=== PATIENT | female | born 1955 | race Caucasian/White ===

== ENCOUNTER 2023-09-19 12:32 | Emergency (ER) | payer MEDICARE, OTHER, SELFPAY ==
[2023-09-19 12:33] VITALS: BP 139/100; PULSE 97; RESP 18; TEMP 37.2; O2SAT 98; BMI 19.0
--- NOTE | 2023-09-19 12:53 | CT_ITS ---
STUDY: CT ABDOMEN AND PELVIS WITH CONTRAST REASON FOR EXAM: Female, 68 years old. Abdominal pain. History of metastatic endometrial carcinoma. RADIATION DOSAGE (If Supplied By Facility): CTDIvol = ( 9.53 ) mGy, DLP = ( 282.52 ) mGycm TECHNIQUE: Transaxial images were obtained from the dome of the diaphragm to the symphysis pubis without oral contrast. IV 100mL Isovue-300 was administered. Sagittal and coronal images were reconstructed. Individualized dose optimization techniques were used for this CT. COMPARISON: None. FINDINGS: The visualized lung bases are unremarkable. The visualized portions of the heart are within normal limits. There is decreased attenuation of the liver consistent with steatosis. Normal gallbladder and extrahepatic biliary system. Borderline splenomegaly. Normal pancreas. Normal bilateral adrenal glands. Normal right kidney. Normal left kidney. Incidental note is made of a left retroaortic renal vein. Normal visualized stomach. Normal small intestine. There are multiple colonic diverticula consistent with diverticulosis. The appendix is visualized and appears normal. There is diffuse atherosclerotic calcification of the abdominal aorta, without a demonstrated aneurysm. Normal inferior vena cava. Normal retroperitoneum. Normal urinary bladder. There is absence of the uterus consistent with a prior hysterectomy. Normal abdominal wall. Status post right total hip replacement causing beam hardening artifact in the pelvis thus limiting the evaluation. CT/Abdomen/Pelvis W IV Cont ONLY IMPRESSION: Fatty infiltration of the liver. Scattered sigmoid diverticula. Borderline splenomegaly. Electronically Signed: Luke Mason MD at 14:13 EST ,
--- NOTE | 2023-09-19 12:56 | EX.ED.DYSGE1 ---
HPI <OTTO Lizama - Last Filed: 09/19/23 15:23> History of Present Illness Chief Complaint: Abd Pain Narrative Narrative: Patient is a 68-year-old female who is from [place] who is currently being treated for endometrial cancer and had some metastasis to the lymph nodes as well as the abdomen. Patient states she did have abdominal surgery 2 years ago and they believe they got all the cancer. She is still on immunotherapy. She received therapy prior to coming here she came here on September 13 and will be leaving here September 23. Patient states that since she has been here, she has had nausea, vomiting, lower abdominal pain. She states she just feels weak and is here for evaluation. PFSH <OTTO Lizama - Last Filed: 09/19/23 15:23> [facility] Medical History (Updated 09/19/23 @ 15:23 by OTTO Lizama) Endometrial cancer Ingrown nail Stroke TIA (transient ischemic attack) Home Medications ondansetron 4 mg disintegrating tablet 4 mg PO Q8H PRN PRN Nausea #10 tabs 09/19/23 [Rx Last Taken Unknown] Allergy/AdvReac Type Severity Reaction Status Date / Time No Known Allergies Allergy Verified 09/19/23 12:33 Family History (Updated 09/19/23 @ 13:10 by Mirella Rincon) Other Complication of implanted vaginal mesh H/O: hysterectomy History of hysterectomy for cancer Hx of tonsillectomy Social History Smoking Status: Never smoker ROS <OTTO Lizama - Last Filed: 09/19/23 15:23> ROS ED ROS Narrative Constitutional: Negative for fever, chills, weight loss. Positive for weakness Eyes: Negative for vision loss, vision change, double vision ENT: Negative for any sore throat, ear pain, congestion Cardiovascular: Negative for any chest pain, tightness, palpitations Respiratory: Negative for any cough, sputum production, hemoptysis, dyspnea, dyspnea on exertion, orthopnea Gastrointestinal: Negative for any constipation, blood in stool, blood in vomit. Positive for abdominal pain, nausea, vomiting, diarrhea : Negative for any urinary frequency, dysuria, retention, blood in urine Muscle skeletal: Negative for any myalgias, arthralgias, neck pain, back pain Neurological: Negative for any headache, syncope, numbness or tingling, dizziness Skin: Negative for any rashes, lumps, itching, abrasions, lacerations Psychiatric: Negative for any depression, anxiety, stress, suicidal ideation, homicidal ideation Hematologic: Negative for any easy bruising, excessive bruising, easy bleeding Allergies: Negative for any eczema, hives, rash EXAM <OTTO Lizama - Last Filed: 09/19/23 15:23> Physical Exam Narrative Exam Narrative: Vital signs reviewed. HEET: Head normocephalic atraumatic, TMs clear bilaterally. Posterior pharynx is clear, moist mucous membranes. Nares clear bilaterally. Neck: Supple with no lymphadenopathy or tenderness. No signs of meningismus. Cardiac: Regular rate and rhythm no murmurs gallops or rubs, equal peripheral pulses bilaterally. Respiratory: Lungs clear to auscultation bilaterally. No chest tenderness. Abdomen: Soft, nontender, nondistended. No abdominal bruit or pulsatile masses. No hepatosplenomegaly. Patient does point to the left lower quadrant saying that she has a cramping, painful sensation however there is no peritoneal signs. Minimal pain on palpation. Extremities: No peripheral edema, no signs of gross trauma or deformity. Active full range of motion of all extremities. Neuro: Cranial nerves II through XII intact, no focal neurological deficits. Skin: Clean dry and intact with no rash, purpura, petechiae, vesicles or pustules. Backs/flank: No CVA tenderness, no midline spinal tenderness, no deformity. Psych: Normal mood and affect. No SI, HI or acute psychosis. Const Vital Signs: 09/19/23 12:33 Temperature 99 F Temperature Source Temporal Pulse Rate 97 Respiratory Rate 18 Blood Pressure 139/100 H Blood Pressure Mean 113 Pulse Ox 98 Oxygen Delivery Method Room Air <Godfrey Saeed MD - Last Filed: 09/22/23 07:06> Physical Exam Const Vital Signs: 09/19/23 12:33 Temperature 99 F Temperature Source Temporal Pulse Rate 97 Respiratory Rate 18 Blood Pressure 139/100 H Blood Pressure Mean 113 Pulse Ox 98 Oxygen Delivery Method Room Air MDM <OTTO Lizama - Last Filed: 09/19/23 15:23> [facility] Lab Data Labs: Laboratory Results - last 24 hr 09/19/23 09/19/23 13:00 14:35 WBC 4.8 RBC 4.43 Hgb 13.4 Hct 40.2 MCV 90.7 MCH 30.2 MCHC 33.3 RDW Std Deviation 44.3 H RDW Coeff of Maria M 13.3 Plt Count 141 L MPV 10.7 Immature Gran % (Auto) 0.200 Neut % (Auto) 53.7 Lymph % (Auto) 19.8 Owen % (Auto) 13.6 H Eos % (Auto) 11.9 H Baso % (Auto) 0.8 Absolute Neuts (auto) 2.6 Absolute Lymphs (auto) 0.95 Nucleated RBC % 0 Sodium 140 Potassium 3.6 Chloride 106 Carbon Dioxide 26.0 Anion Gap 8 BUN 18 Creatinine 0.97 Estim Creat Clear Calc 44.12 Est GFR (MDRD) Af Amer 74 Est GFR (MDRD) Non-Af 61 BUN/Creatinine Ratio 18.6 Glucose 80 Calcium 9.6 Total Bilirubin 0.70 AST 27 ALT 18 Alkaline Phosphatase 51 Total Protein 6.3 L Albumin 3.2 Globulin 3.1 Albumin/Globulin Ratio 1.0 Lipase 20 Urine Color Yellow Urine Clarity Clear Urine pH 5.0 Ur Specific Revere 1.015 Urine Protein 15 H Urine Glucose (UA) Normal Urine Ketones 150 A* Urine Occult Blood Negative Urine Nitrite Negative Urine Bilirubin Negative Urine Urobilinogen Normal Ur Leukocyte Esterase 25 H Urine RBC 0 SEEN Urine WBC 0-5 SEEN Ur Squamous Epith Cells 0-5 SEEN Urine Bacteria 0 SEEN Urine Mucus 0 SEEN Radiography Diagnostic Testing: Clinical Impression(s) from Imaging Studies Abdomen/Pelvis CT 09/19/23 12:53 IMPRESSION: Fatty infiltration of the liver. Scattered sigmoid diverticula. Borderline splenomegaly. Electronically Signed: Luke Mason MD at 14:13 EST , Treatment and Re-Evaluation :: Patient appears generally well, patient appears nontoxic, vital signs are stable. Presenting to the emergency department for lower abdominal pain, nausea, vomiting, diarrhea. She is currently being treated for endometrial cancer that spread to the lymph nodes. Differential diagnosis includes bowel obstruction, viral gastrointestinal illness, gastritis, mass, food poisoning. Patient will receive basic laboratory values concerning for a leukocytosis, leukopenia, BMP to assess electrolytes to make sure there is no imbalance, kidney function, as well as CT scan of the abdomen pelvis. All radiologic examinations were read, reviewed by the emergency department attending. From these reads, a plan of care will be put in place. Patient CBC was unremarkable, chemistries were unremarkable, lipase was negative. Patient's urinalysis was negative for any infection. Patient CT scan of the abdomen pelvis showed fatty infiltration of liver, scattered sigmoid diverticula, borderline spinal megaly a. At this time, patient is able to pass a p.o. challenge. She looks generally well. She is instructed return for any worsening symptoms. Likely, patient's been traveling, has been more exhausted, and she has not been eating and drinking normally. At this time, she will be given a prescription for Zofran, she will rest over the next couple days, instructed return for any worsening symptoms. <Godfrey Saeed MD - Last Filed: 09/22/23 07:06> [facility] MDM Narrative Medical decision making narrative: Dr. Saeed: I have personally performed a face to face assessment of the patient and have reviewed the MARIVEL Note. I performed a substantive portion of the visit including all aspects of the following. My atkins findings include: History is abdominal pain, lower, nausea, vomiting, diarrhea, history of endometrial cancer. Exam is afebrile. Vital signs noted. Regular rate and rhythm. Lungs clear to auscultation bilaterally. Abdomen soft with minimal tenderness to palpation bilateral lower quadrants. No rebound or guarding. Medical Decision Making: Labs. Check CT. Check UA. Look for signs of dehydration or source of lower abdominal pain including colitis versus diverticulitis versus obstruction. Discharge. Other additions or changes: [None] History & Record Review Discussion w/independent historian: Patient Lab Data Attestation: I reviewed the patient's lab results. Labs: Laboratory Results - last 24 hr 09/19/23 09/19/23 13:00 14:35 WBC 4.8 RBC 4.43 Hgb 13.4 Hct 40.2 MCV 90.7 MCH 30.2 MCHC 33.3 RDW Std Deviation 44.3 H RDW Coeff of Maria M 13.3 Plt Count 141 L MPV 10.7 Immature Gran % (Auto) 0.200 Neut % (Auto) 53.7 Lymph % (Auto) 19.8 Owen % (Auto) 13.6 H Eos % (Auto) 11.9 H Baso % (Auto) 0.8 Absolute Neuts (auto) 2.6 Absolute Lymphs (auto) 0.95 Nucleated RBC % 0 Sodium 140 Potassium 3.6 Chloride 106 Carbon Dioxide 26.0 Anion Gap 8 BUN 18 Creatinine 0.97 Estim Creat Clear Calc 44.12 Est GFR (MDRD) Af Amer 74 Est GFR (MDRD) Non-Af 61 BUN/Creatinine Ratio 18.6 Glucose 80 Calcium 9.6 Total Bilirubin 0.70 AST 27 ALT 18 Alkaline Phosphatase 51 Total Protein 6.3 L Albumin 3.2 Globulin 3.1 Albumin/Globulin Ratio 1.0 Lipase 20 Urine Color Yellow Urine Clarity Clear Urine pH 5.0 Ur Specific Revere 1.015 Urine Protein 15 H Urine Glucose (UA) Normal Urine Ketones 150 A* Urine Occult Blood Negative Urine Nitrite Negative Urine Bilirubin Negative Urine Urobilinogen Normal Ur Leukocyte Esterase 25 H Urine RBC 0 SEEN Urine WBC 0-5 SEEN Ur Squamous Epith Cells 0-5 SEEN Urine Bacteria 0 SEEN Urine Mucus 0 SEEN Radiography Diagnostic Testing: Clinical Impression(s) from Imaging Studies Abdomen/Pelvis CT 09/19/23 12:53 IMPRESSION: Fatty infiltration of the liver. Scattered sigmoid diverticula. Borderline splenomegaly. Electronically Signed: Luke Mason MD at 14:13 EST , Discharge Plan Triage Chief Complaint: Abd Pain ED Midlevel Provider: Mario Caballero ED Provider: Godfrey Saeed Dx/Rx/DC Orders Clinical Impression: Acute dehydration, Nausea & vomiting Instructions: Cancer Tx Control Nausea Vomiting, Dehydration Prescriptions: New ondansetron 4 mg tablet,disintegrating 4 mg PO Q8H PRN PRN (Reason: Nausea) Qty: 10 0RF Primary Care Provider: Care Physician,No Primary Referrals: Care Physician,No Primary [Primary Care Provider] - Activity Restrictions/Additional Instructions: Please follow-up with your oncologist Disposition Disposition: Home, Self Care Discharge Date/Time: 09/19/23 15:33
[2023-09-19] MEDS: 0.9% Normal Saline (1000mL) 1,000 ML 1000 ML IV (13:02)
[2023-09-19] MEDS: Ondansetron 4 MG/2 ML Vial IV (13:03)
[2023-09-19] MEDS: Morphine 4 MG/ML Syringe IV (13:04)
[2023-09-19 13:05] LABS: Absolute Lymphocyte Count 0.95 X10^3/uL (0.83-4.51); Absolute Neutrophil Count 2.6 X10^3/uL (2.0-7.7); Basophil# 0.04 X10^3/uL; Basophil% 0.8 % (0-1); Eosinophil# 0.57 X10^3/uL; Eosinophils% 11.9 % (0-5); Hematocrit 40.2 % (37-47); Hemoglobin 13.4 g/dL (12.0-15.0); Lymphocyte # 0.95 X10^3/ul (0.83-4.51); Lymphocyte % 19.8 % (19-41); Mean Corp Hgb Conc 33.3 g/dL (32-36); Mean Corpuscular Hgb 30.2 pg (27.0-32.0); Mean Corpuscular Volume 90.7 fL (81-99); Mean Platelet Vol. 10.7 fl (6.2-12.0); Monocyte# 0.65 X10^3/uL; Monocyte% 13.6 % (0-10); NRBC Flagged by Analyzer 0 % (0-5); Neutrophil # 2.57 X10^3/uL (2.7-7.7); Neutrophil % 53.7 % (47-70); Platelet Count 141 K/mm3 (150-450); RBC Distribution Width CV 13.3 % (11.6-14.6); RBC Distribution Width SD 44.3 fl (35.1-43.9); Red Blood Count 4.43 M/mm3 (4.2-5.4); White Blood Count 4.8 K/mm3 (4.4-11.0)
[2023-09-19 13:26] LABS: AST(SGOT) 27 U/L (15-37); Alanine Aminotransfer ALT/SGPT 18 U/L (13-56); Albumin, Serum 3.2 g/dL (3.2-5.0); Alkaline Phosphatase 51 U/L (45-117); Anion Gap 8 (5-15); BUN 18 mg/dL (7-18); BUN/Creat Ratio 18.6 RATIO (10-20); Calcium,Total 9.6 mg/dL (8.5-10.1); Chloride 106 mmol/L (98-107); Creatinine, Serum 0.97 mg/dL (0.55-1.02); EST Glomerular Filtration Rate 61 mL/min (>60); Est Glom Filt Rate - Afr Amer 74 mL/min (>60); Estimated Creatinine Clearance 44.12 ml/min; Globulin 3.1 g/dL (2.2-4.2); Glucose 80 mg/dL (74-106); Lipase 20 U/L (13-75); Potassium 3.6 mmol/L (3.5-5.1); Protein, Total 6.3 g/dL (6.4-8.2); Sodium Level 140 mmol/L (136-145)
[2023-09-19 14:43] LABS: Bacteria 0 SEEN /hpf (None Seen); Mucous, Urine 0 SEEN /hpf (<or=2+); Red Blood Cells-Urine 0 SEEN /hpf (0-5)
[2023-09-19 14:47] LABS: Color, Urine Yellow (Yellow); Glucose, Dipstick Normal (Normal); Leukocyte Esterase-Dipstick 25 /ul (Negative); Nitrite-Dipstick Negative (Negative); Occult Blood-Urine Negative /ul (Negative); Protein-Dipstick 15 mg/dl (Negative); Specific Gravity, Urine 1.015 (1.002-1.030); Urine Bilirubin Dipstick Negative (Negative); Urine Clarity Clear (Clear); Urine Urobilinogen Normal (Normal)
[2023-09-19 14:59] LABS: Ketone-Dipstick 150 mg/dl (Negative)
[2023-09-19 15:01] LABS: Squamous Epithelial Cells - UA 0-5 SEEN /hpf (5-10); White Blood Cells 0-5 SEEN /hpf (0-5)
[2023-09-19 15:32] VITALS: BP 129/88; PULSE 62; RESP 15; O2SAT 97
== END 2023-09-19 15:33 | disposition home or self-care (01) ==
PROVIDERS: Nurse Practitioner; Emergency Provider Emergency Medicine; Visit Provider Emergency Medicine
DX: E86.0 Dehydration (principal); C54.1 Malignant neoplasm of endometrium; R11.2 Nausea with vomiting, unspecified; Z85.89 Personal history of malignant neoplasm of other organs and systems; Z86.73 Personal history of transient ischemic attack (TIA), and cerebral infarction without residual deficits
CPT/HCPCS: 74177; 80053; 81001; 83690; 85025; 96361; 96374; 96375; 99283; J7030; Q9967; J2405

== ENCOUNTER → 2025-03-08 | Outpatient (CLI) | payer MEDICARE, OTHER, SELFPAY ==
--- OUTSIDE RECORDS SUMMARY | 2025-03-08 06:19 | XMS RPT_ITS | CCD ---
Author Organization [facility] Inform ion Partnership [facility] Care Team Providers Care Die Operator Name Role Phone Godfrey Saeed Attending [facility] Care Physician, No Primary Primary Care Unava dorothy Harris AWS SOFTWARE DEVELOPMENT ENGINEER, Moshe Mclaughlin Primary Care Provider Allergies Allergy Classification Reported Allergen(s) Allergy Type Date of Onset Reaction(s) Facility (4 sources) Acetaminophen / oxyCODONE Drug Allergy 04-12-2024 Itching [facility] Medications Current Medications Medication Drug Class(es) Dates Sig (Normalized) Sig (Original) diazePAM 10 mg oral tablet (5 sources) Benzodiazepine take 1 tablet by darnell th every six hours as needed diazePAM (VALIUM) 10 mg tablet Take 10 mg by mouth every 6 hours as needed for anxiety. Active Docusate (3 sources) docusate sodium (COLACE ORAL) Take by mouth. Active docusate sodium (COLACE ORAL) Take by mouth. 0 Active hydrocortisone 20 mg oral tablet (5 sources) Corticosteroid hydrocortisone (CORTEF) 20 mg tablet Take 10 mg by mouth once daily. Active levothyroxine sodium 0.088 mg oral capsule (5 sources) l-Thyroxine take 1 capsule by mouth once daily before breakfast levothyroxine 88 mcg cap Take 88 mcg by mouth daily before breakfast. Active morphine sulfate 15 mg oral tablet (5 sources) Opioid Agonist take 1 tablet by mouth every four hours as needed morphine IR 15 mg tablet Take 15 mg by mouth every 4 hours as needed for pain. Active ondansetron 4 mg disintegrating oral tablet (6 sources) Serotonin-3 Receptor Antagonist Start: 023 take 4 mg by mouth every eight hours as needed Ondansetron Active 4 MG PO EVERY 8 HOURS NEEDED September 19, 2023 12:00am take 1 tablet by darnell th every eight hours as needed ondansetron (ZOFRAN) 8 mg tablet Take 8 mg by mouth every 8 hours as needed for nausea/vomiting. Active pantoprazole 40 mg delayed release oral tablet (5 sources) Proton Pump Inhibitor take 1 tablet by mouth once daily pantoprazole DR (PROTONIX) 40 mg tablet Take 40 mg by mouth once daily. Active pembrolizumab 2 mg/kg/dose in NaCl 0.9% 50 mL (5 sources) pembrolizumab 2 mg/kg/dose in NaCl 0.9% 50 mL Inject 2 mg/kg/dose intravenously one time only. Active pembrolizumab 2 mg/kg/dose in NaCl 0.9% 50 mL Inject 2 mg/kg/dose intravenously one time only. 0 Active polyethylene glycol 3350 221369 mg / potassium chloride 1480 mg / sodium bicarbonate 5720 mg / sodium chloride 09855 mg powder for oral solution (4 sources) Osmotic Laxative Start: 04-11-2024 peg-electroly te soln (NULYTELY) 420 gram suspension Take 4,000 mL by mouth as directed. 04/11/2024 Active Start: 04-09-2024 End: 04-09-2024 take 420 g by mouth once peg-electrolyte soln (NULYTE LY) 420 gram suspension Take 4,000 mL by mouth one time only for 1 dose. 1 Each 0 04/09/2024 04/09/2024 Active Problems Active Problems Problem Classification Problem Date Documented Da te Episodic/Chronic Cancer of other GI organs; peritoneum (3 sources) Malignant tumor of digestive organ; Translations: [Malignant neoplasm of ill-defined sites within the digestive system] 04-09-2024 Chronic Fluid and electrolyte disorders (2 sources) Dehydration; Translations: [Dehydration] Onset: 09-25-2023 09-19-2023 Episodic Past or Other Problems Problem Classification Problem Date Documented Da te Episodic/Chronic Nausea and vomiting (1 source) Nausea and vomiting; Translations: [Nausea with vomiting, unspecified] 09-19-2023 Episodic Other nutritional; endocrine; and metabolic disorders (3 sources) Weight loss; Translations: [Abnormal weight loss] 04-09-2024 Episodic Other screening for suspected conditions (not mental disorders or infectious disease) (3 sources) Imaging of gastrointestinal tract abnormal; Translations: [Abnormal findings on diagnostic imaging of other parts of digestive tract] 04-09-2024 Episodic Results Test Name Value Interpretation Reference Range Facility EGD Study observation Idania gunn 04-14-2024 [facility] Gastrointestinal Endoscopy Patient Name: Brittany Harris Procedure Date: 04/14/2024 1:50 PM Date of : 1955 Admit Type: Outpatient Age: 68 Room: [facility] ENDO 02 Gender: Female Attending MD: Emi Power MD, [id number] Procedure: Upper GI endoscopy Indications: Weight loss Providers: Emi Power MD Patient Profile: This is a 68 year old female. Refer to note in patient chart for documentation of history and physical. Referring Physician: Emi Power MD (Referring MD) Medicines: Monitored Anesthesia Care Complications: No immediate complications. Requesting Provider: Procedure: Pre-Anesthesia Assessment: - Prior to the procedure, a History and Physical was performed, and patient medications, allergies and sensitivities were reviewed. The patient's tolerance of previous anesthesia was reviewed. - The risks and benefits of the procedure and the sedation options and risks were discussed with the patient. All questions were answered and informed consent was obtained. - Patient identification and proposed procedure were verified prior to the procedure by the physician. The procedure was verified in the pre-procedure area. After obtaining informed consent, the endoscope was passed under direct vision. Throughout the procedure, the patient's blood pressure, pulse, and oxygen saturations were monitored continuously. The Endosonoscope was introduced through the mouth, and advanced to the second part of duodenum. I was present and participated during the entire procedure, including non-atkins portions, and during the administration and monitoring of Moderate Sedation. The upper GI endoscopy was accomplished without difficulty. The patient tolerated the procedure well. Findings: A small hiatal hernia was present. A non-obstructing Schatzki ring was found at the gastroesophageal junction. A non-bleeding diverticulum was found in the second portion of the duodenum. Biopsies for histology were taken with a cold forceps in the first portion of the duodenum and in the second portion of the duodenum for evaluation of celiac disease. Impression: - Small hiatal hernia. - Non-obstructing Schatzki ring. - Non-bleeding duodenal diverticulum. - Biopsies were taken with a cold forceps for evaluation of celiac disease. Recommendation: - Await pathology results. - Return to GI clinic after studies are complete. Procedure Code(s): --- Professional --- 35849, Esophagogastroduoden oscopy, flexible, transoral; with biopsy, single or multiple CPT copyright 2020 [employer]. All rights reserved. The codes documented in this report are preliminary and upon machine shop helper review may be revised to meet current compliance requirements. Scope In: Scope Out: MD Emi Dunlap MD 04/14/2024 2:08:58 PM This report has been signed electronically by Emi Power MD Number of Addenda: 0 Note Initiated On: 04/14/2024 1:50 PM Estimated Blood Loss: Estimated blood loss: none. [facility] Radiology Study observation (narrative) [facility] Flexible sigmoidoscopy study on 04-14-2024 [facility] Gastrointestinal Endoscopy Patient Name: Brittany Harris Procedure Date: 04/14/2024 2:09 PM Date of : 1955 Admit Type: Outpatient Age: 68 Room: [facility] ENDO 02 Gender: Female Attending MD: Emi Power MD, [id number] Procedure: Colonoscopy Indications: Abnormal CT of the GI tract Providers: Emi Power MD Patient Profile: This is a 68 year old female. Refer to note in patient chart for documentation of history and physical. Last Colonoscopy: Referring Physician: Emi Power MD (Referring MD) Medicines: Monitored Anesthesia Care Complications: No immediate complications. Requesting Provider: Procedure: Pre-Anesthesia Assessment: - Prior to the procedure, a History and Physical was performed, and patient medications, allergies and sensitivities were reviewed. The patient's tolerance of previous anesthesia was reviewed. - The risks and benefits of the procedure and the sedation options and risks were discussed with the patient. All questions were answered and informed consent was obtained. - Patient identification and proposed procedure were verified prior to the procedure by the physician. The procedure was verified in the pre-procedure area. - ASA Grade Assessment: II - A patient with mild systemic disease. After I obtained informed consent, the scope was passed under direct vision. Throughout the procedure, the patient's blood pressure, pulse, and oxygen saturations were monitored continuously. The Colonoscope was introduced through the anus and advanced to the terminal ileum, with identification of the appendiceal orifice and IC valve. I was present and participated during the entire procedure, including non-atkins portions, and during the administration and monitoring of Moderate Sedation. The colonoscopy was performed without difficulty. The patient tolerated the procedure well. The quality of the bowel preparation was fair. Scope withdrawal time was 10 minutes. Findings: The entire examined colon appeared normal. The terminal ileum appeared normal. Impression: - Preparation of the colon was fair. - The entire examined colon is normal. - The examined portion of the ileum was normal. - No specimens collected. Recommendation: - Repeat colonoscopy in 3 years for screening purposes. - Patient has a contact number available for emergencies. The signs and symptoms of potential delayed complications were discussed with the patient. Return to normal activities tomorrow. Written discharge instructions were provided to the patient. - Continue present medications. - Resume previous diet. Procedure Code(s): --- Professional --- 33574, Colonoscopy, flexible; diagnostic, including collection of specimen(s) by brushing or washing, when performed (separate procedure) CPT copyright 2020 [employer]. All rights reserved. The codes documented in this report are preliminary and upon machine shop helper review may be revised to meet current compliance requirements. Scope In: Scope Out: MD Emi Dunlap MD 04/14/2024 2:26:09 PM This report has been signed electronically by Emi Power MD Number of Addenda: 0 Note Initiated On: 04/14/2024 2:09 PM Estimated Blood Loss: Estimated blood loss: none. [facility] Radiology Study observation (narrative) [facility]en/Pelvis W IV Cont ONLY [facility] Imaging Services [address] [place] [address] Abdomen/Pelvis W IV Cont ONLY MR#: [id number] Acct: [id number] Name: BRITTANY HARRIS Star Rep #: [id number] : 1955 F 68 From: Luke carter MD PCP: Status: PRE ER Study: Abdomen/Pelvis W IV Cont ONLY Date of Exam: Exam# [id number] Ordering Dr: Mario Caballero AWS SOFTWARE DEVELOPMENT ENGINEER-C [id number] STUDY: CT ABDOMEN AND PELVIS WITH CONTRAST REASON FOR EXAM: Female, 68 years old. Abdominal pain. History of metastatic endometrial carcinoma. RADIATION DOSAGE (If Supplied By Facility): CTDIvol = ( 9.53 ) mGy, DLP = ( 282.52 ) mGycm TECHNIQUE: Transaxial images were obtained from the dome of the diaphragm to the symphysis pubis without oral contrast. IV 100mL Isovue-300 was administered. Sagittal and coronal images were reconstructed. Individualized dose optimization techniques were used for this CT. COMPARISON: None. FINDINGS: The visualized lung bases are unremarkable. The visualized portions of the heart are within normal limits. There is decreased attenuation of the liver consistent with steatosis. Normal gallbladder and extrahepatic biliary system. Borderline splenomegaly. Normal pancreas. Normal bilateral adrenal glands. Normal right kidney. Normal left kidney. Incidental note is made of a left retroaortic renal vein. Normal visualized stomach. Normal small intestine. There are multiple colonic diverticula consistent with diverticulosis. The appendix is visualized and appears normal. There is diffuse atherosclerotic calcification of the abdominal aorta, without a demonstrated aneurysm. Normal inferior vena cava. Normal retroperitoneum. Normal urinary bladder. There is absence of the uterus consistent with a prior hysterectomy. Normal abdominal wall. Status post right total hip replacement causing beam hardening artifact in the pelvis thus limiting the evaluation. CT/Abdomen/Pelvis W IV Cont ONLY IMPRESSION: Fatty infiltration of the liver. Scattered sigmoid diverticula. Borderline splenomegaly. Electronically Signed: Luke Mason MD at 14:13 EST , CC: OTTO Caballero Storeroom Clerk: Signed Normal [facility] Absolute lymphocyte countOrd ered By: Mario Caballero on 09-19-2023 Lymphocytes Auto (Unsp spec) [#/Vol] 0.95 10*3/uL 0.83-4.51 [facility] Basophil percentageOrdered B y: Mario Caballero on 09-19-2023 Basophil percentage 0-5 SEEN /hpf 0-5 [facility] Neutrophils (Bld) [#/Vol] 2.6 10*3/uL 2.0-7.7 [facility] Protein [Mass/Vol] 6.3 g/dL 6.4-8.2 [facility] Bilirubin Test strip Ql (U)O rdered By: Mario Caballero on 09-19-2023 Bilirubin Ql (U) Negative Negative [facility] CBC W/Diff, Automatedon 09-05 Absolute Lymph 0.95 X10 3/uL Normal 0.83-4.51 [facility] Comment on above: Performed By: #### L 100.0100, L501.2450, L500.4050 #### [facility] [address] [place], [address] Absolute Neut 2.6 X10 3/uL Normal 2.0-7.7 [facility] Comment on above: Performed By: #### L 100.0100, L501.2450, L500.4050 #### [facility] [address] [place], [address] IG% 0.200 Normal 0.0-0.9 [facility] Comment on above: Result Comment: IG% - Immature Granulocytes (promyelocytes, myelocytes and metamyelocytes) > 1% indicates that a LEFT SHIFT is Present. Performed By: #### L 100.0100, L501.2450, L500.4050 #### [facility] [address] [place], [address] Nucleated RBC (Bld) [#/Vol] 0 10*3/uL Normal 0-5 [facility] Comment on above: Performed By: #### L 100.0100, L501.2450, L500.4050 #### [facility] [address] [place], [address] RDW SD 44.3 fl High 35.1-43.9 [facility] Comment on above: Performed By: #### L 100.0100, L501.2450, L500.4050 #### [facility] [address] [place], [address] CBC W/Diff, AutomatedOrdered By: Mario Caballero on 09-19-2023 Basophils/100 WBC (Bld) 0.8 % Normal 0-1 [facility] Comment on above: Performed By: #### L 100.0100, L501.2450, L500.4050 #### [facility] [address] [place], [address] Eosinophils/100 WBC (Bld) 11.9 % High 0-5 [facility] Comment on above: Performed By: #### L 100.0100, L501.2450, L500.4050 #### [facility] [address] [place], [address] Erythrocyte distribution width (RBC) [Ratio] 13.3 % Normal 11.6-14.6 [facility] Comment on above: Performed By: #### L 100.0100, L501.2450, L500.4050 #### [facility] [address] [place], [address] Hematocrit (Bld) [Volume fraction] 40.2 % Normal 37-47 [facility] Comment on above: Performed By: #### L 100.0100, L501.2450, L500.4050 #### [facility] [address] [place], [address] Hemoglobin (Bld) [Mass/Vol] 13.4 g/dL Normal 12.0-15.0 [facility] Comment on above: Performed By: #### L 100.0100, L501.2450, L500.4050 #### [facility] [address] [place], [address] Lymphocytes/100 WBC (Bld) 19.8 % Normal 19-41 [facility] Comment on above: Performed By: #### L 100.0100, L501.2450, L500.4050 #### [facility] [address] [place], [address] MCH (RBC) [Entitic mass] 30.2 pg Normal 27.0-32.0 [facility] Comment on above: Performed By: #### L 100.0100, L501.2450, L500.4050 #### [facility] [address] [place], [address] MCHC (RBC) [Mass/Vol] 33.3 g/dL Normal 32-36 [facility] Comment on above: Performed By: #### L 100.0100, L501.2450, L500.4050 #### [facility] [address] [place], [address] MCV (RBC) [Entitic vol] 90.7 fL Normal 81-99 [facility] Comment on above: Performed By: #### L 100.0100, L501.2450, L500.4050 #### [facility] [address] [place], [address] Monocytes/100 WBC (Bld) 13.6 % High 0-10 [facility] Comment on above: Performed By: #### L 100.0100, L501.2450, L500.4050 #### [facility] [address] [place], [address] Neutrophils/100 WBC (Bld) 53.7 % Normal 47-70 [facility] Comment on above: Performed By: #### L 100.0100, L501.2450, L500.4050 #### [facility] [address] [place], [address] Platelet mean volume (Bld) [Entitic vol] 10.7 fL Normal 6.2-12.0 [facility] Comment on above: Performed By: #### L 100.0100, L501.2450, L500.4050 #### [facility] [address] [place], [address] Platelets (Bld) [#/Vol] 141 10*3/uL Low 150-450 [facility] Comment on above: Performed By: #### L 100.0100, L501.2450, L500.4050 #### [facility] [address] [place], [address] RBC (Bld) [#/Vol] 4.43 10*6/uL Normal 4.2-5.4 [facility] Comment on above: Performed By: #### L 100.0100, L501.2450, L500.4050 #### [facility] [address] [place], [address] WBC (Bld) [#/Vol] 4.8 10*3/uL Normal 4.4-11.0 [facility] Comment on above: Performed By: #### L 100.0100, L501.2450, L500.4050 #### [facility] [address] [place], [address] Comprehensive Metabolic Prof ilOrdered By: Mario Caballero on 09-19-2023 Albumin [Mass/Vol] 3.2 g/dL Normal 3.2-5.0 [facility] Comment on above: Performed By: #### L 100.0100, L501.2450, L500.4050 #### [facility] [address] [place], [address] Albumin/Globulin [Mass ratio] 1.0 {ratio} Normal 0.9-2.4 [facility] Comment on above: Performed By: #### L 100.0100, L501.2450, L500.4050 #### [facility] [address] [place], [address] ALT [Catalytic activity/Vol] 18 U/L Normal 13-56 [facility] Comment on above: Performed By: #### L 100.0100, L501.2450, L500.4050 #### [facility] [address] [place], [address] Bilirubin [Mass/Vol] 0.70 mg/dL Normal 0.20-1.00 [facility] Comment on above: Result Comment: For patients on eltrombopag therapy, use of Dimension [place] TBIL is not recommended. Performed By: #### L 100.0100, L501.2450, L500.4050 #### [facility] [address] [place], [address] For patients on eltr ombopag therapy, use of Dimension [place] TBIL is not recommended. Chloride [Moles/Vol] 106 mmol/L Normal 98-107 [facility] Comment on above: Performed By: #### L 100.0100, L501.2450, L500.4050 #### [facility] [address] [place], [address] CO2 [Moles/Vol] 26.0 mmol/L Normal 21.0-32.0 [facility] Comment on above: Performed By: #### L 100.0100, L501.2450, L500.4050 #### [facility] [address] [place], [address] Creatinine [Mass/Vol] 0.97 mg/dL Normal 0.55-1.02 [facility] Comment on above: Result Comment: The validity of the calculated GFR GFRAA in patients over 70 years has not been determined. Clinical correlation is essential. Performed By: #### L 100.0100, L501.2450, L500.4050 #### [facility] [address] [place], [address] The validity of the calculated GFR & GFRAA in patients over 70 years has not been determined. Clinical correlation is essential. Globulin (S) [Mass/Vol] 3.1 g/dL Normal 2.2-4.2 [facility] Comment on above: Performed By: #### L 100.0100, L501.2450, L500.4050 #### [facility] [address] [place], [address] Glucose [Mass/Vol] 80 mg/dL Normal 74-106 [facility] Comment on above: Performed By: #### L 100.0100, L501.2450, L500.4050 #### [facility] [address] [place], [address] Potassium [Moles/Vol] 3.6 mmol/L Normal 3.5-5.1 [facility] Comment on above: Performed By: #### L 100.0100, L501.2450, L500.4050 #### [facility] [address] [place], [address] Sodium [Moles/Vol] 140 mmol/L Normal 136-145 [facility] Comment on above: Performed By: #### L 100.0100, L501.2450, L500.4050 #### [facility] [address] [place], [address] Urea nitrogen [Mass/Vol] 18 mg/dL Normal 7-18 [facility] Comment on above: Performed By: #### L 100.0100, L501.2450, L500.4050 #### [facility] [address] [place], [address] Comprehensive Metabolic Prof sarbjit 09-19-2023 ALK P 51 U/L Normal 45-117 [facility] Comment on above: Performed By: #### L 100.0100, L501.2450, L500.4050 #### [facility] [facility] [address] [place], [address] AST [Catalytic activity/Vol] 27 U/L Normal 15-37 [facility] Comment on above: Performed By: #### L 100.0100, L501.2450, L500.4050 #### [facility] [address] [place], [address] BUN/CRE 18.6 RATIO Normal 10-20 [facility] Comment on above: Performed By: #### L 100.0100, L501.2450, L500.4050 #### [facility] [address] [place], [address] CA,Total 9.6 mg/dL Normal 8.5-10.1 [facility] Comment on above: Performed By: #### L 100.0100, L501.2450, L500.4050 #### [facility] [address] [place], [address] ECRCL 44.12 ml/min Normal [facility] Comment on above: Performed By: #### L 100.0100, L501.2450, L500.4050 #### [facility] [address] [place], [address] EST GFR - AA 74 mL/min Normal >60 [facility] Comment on above: Result Comment: Afri can [place] GFR Calc Performed By: #### L 100.0100, L501.2450, L500.4050 #### [facility] [address] [place], [address] GAP 8 Normal 5-15 [facility] Comment on above: Performed By: #### L 100.0100, L501.2450, L500.4050 #### [facility] [address] [place], [address] GFR/1.73 sq M.predicted among non-blacks MDRD (S/P/Bld) [Vol rate/Area] 61 mL/min/{1.73_m2} Normal >60 [facility] Comment on above: Result Comment: Non- GFR Calc Performed By: #### L 100.0100, L501.2450, L500.4050 #### [facility] [address] [place], [address] T PROT 6.3 g/dL Low 6.4-8.2 [facility] Comment on above: Performed By: #### L 100.0100, L501.2450, L500.4050 #### [facility] [address] [place], [address] Emergency Department Summary on 09-19-2023 Emergency Department Summary [facility] Medical Records Department [address] [place] [address] Emergency Department Summary 09/19/23 MR#: [id number] Acct: [id number] Name: BRITTANY HARRIS Rep #: [id number] : 1955 68 From: Mario MENJIVAR PCP: Care Physician,No Primary Status:DEP ER Location: ED HPI History of Present Illness Chief Complaint: Abd Pain Narrative Narrative: Patient is a 68-year-old female who is from [place] who is currently being treated for endometrial cancer and had some metastasis to the lymph nodes as well as the abdomen. Patient states she did have abdominal surgery 2 years ago and they believe they got all the cancer. She is still on immunotherapy. She received therapy prior to coming here she came here on September 13 and will be leaving here September 23. Patient states that since she has been here, she has had nausea, vomiting, lower abdominal pain. She states she just feels weak and is here for evaluation. [facility] Medical History (Updated 09/19/23 @ 15:23 by LAYTON LizamaC) Endometrial cancer Ingrown nail Stroke TIA (transient ischemic attack) Home Medications ondansetron 4 mg disintegrating tablet 4 mg PO Q8H PRN PRN Nausea #10 tabs 09/19/23 [Rx Last Taken Unknown] Allergy/AdvReac Type Severity Reaction Status Date / Time No Known Allergies Allergy Verified 09/19/23 12:33 Family History (Updated 09/19/23 @ 13:10 by Mirella Rincon) Other Complication of implanted vaginal mesh H/O: hysterectomy History of hysterectomy for cancer Hx of tonsillectomy Social History Smoking Status: Never smoker ROS ROS ED ROS Narrative Constitutional: Negative for fever, chills, weight loss. Positive for weakness Eyes: Negative for vision loss, vision change, double vision ENT: Negative for any sore throat, ear pain, congestion Cardiovascular: Negative for any chest pain, tightness, palpitations Respiratory: Negative for any cough, sputum production, hemoptysis, dyspnea, dyspnea on exertion, orthopnea Gastrointestinal: Negative for any constipation, blood in stool, blood in vomit. Positive for abdominal pain, nausea, vomiting, diarrhea : Negative for any urinary frequency, dysuria, retention, blood in urine Muscle skeletal: Negative for any myalgias, arthralgias, neck pain, back pain Neurological: Negative for any headache, syncope, numbness or tingling, dizziness Skin: Negative for any rashes, lumps, itching, abrasions, lacerations Psychiatric: Negative for any depression, anxiety, stress, suicidal ideation, homicidal ideation Hematologic: Negative for any easy bruising, excessive bruising, easy bleeding Allergies: Negative for any eczema, hives, rash EXAM Physical Exam Narrative Exam Narrative: Vital signs reviewed. HEET: Head normocephalic atraumatic, TMs clear bilaterally. Posterior pharynx is clear, moist mucous membranes. Nares clear bilaterally. Neck: Supple with no lymphadenopathy or tenderness. No signs of meningismus. Cardiac: Regular rate and rhythm no murmurs gallops or rubs, equal peripheral pulses bilaterally. Respiratory: Lungs clear to auscultation bilaterally. No chest tenderness. Abdomen: Soft, nontender, nondistended. No abdominal bruit or pulsatile masses. No hepatosplenomegaly. Patient does point to the left lower quadrant saying that she has a cramping, painful sensation however there is no peritoneal signs. Minimal pain on palpation. Extremities: No peripheral edema, no signs of gross trauma or deformity. Active full range of motion of all extremities. Neuro: Cranial nerves II through XII intact, no focal neurological deficits. Skin: Clean dry and intact with no rash, purpura, petechiae, vesicles or pustules. Backs/flank: No CVA tenderness, no midline spinal tenderness, no deformity. Psych: Normal mood and affect. No SI, HI or acute psychosis. Const Vital Signs: 09/19/23 12:33 Temperature 99 F Temperature Source Temporal Pulse Rate 97 Respiratory Rate 18 Blood Pressure 139/100 H Blood Pressure Mean 113 Pulse Ox 98 Oxygen Delivery Method Room Air Physical Exam Const Vital Signs: 09/19/23 12:33 Temperature 99 F Temperature Source Temporal Pulse Rate 97 Respiratory Rate 18 Blood Pressure 139/100 H Blood Pressure Mean 113 Pulse Ox 98 Oxygen Delivery Method Room Air MDM MDM Lab Data Labs: Laboratory Results - last 24 hr 09/19/23 09/19/23 13:00 14:35 WBC 4.8 RBC 4.43 Hgb 13.4 Hct 40.2 MCV 90.7 MCH 30.2 MCHC 33.3 RDW Std Deviation 44.3 H RDW Coeff of Maria M 13.3 Plt Count 141 L MPV 10.7 Immature Gran % (Auto) 0.200 Neut % (Auto) 53.7 Lymph % (Auto) 19.8 [place] % (Auto) 13.6 H Eos % (Auto) 11.9 H Baso % (Auto) 0.8 Absolute Neuts (aut (more content not included)... Normal [facility] Ketones Test strip Ql (U)Ord ered By: Mario Caballero on 09-19-2023 Ketones Ql (U) 150 mg/dl Negative [facility] Comment on above: CRITICAL VALUE *HRES ULTS CALLED TO [facility] 09/19/23 1458 Belkis Sick.REPORT READ BACK BY [facility]. Laboratory - Chemistry and C hemistry - challengeOrdered By: Mario Caballero on 09-19-2023 ALP [Catalytic activity/Vol] 51 U/L 45-117 [facility] Urea nitrogen/Creatinine [Mass ratio] 18.6 mg/mg 10-20 [facility] - Hematology and Cell countsOrdered By: Mario Caballero on 09-19-2023 Erythrocyte distribution width (RBC) [Entitic vol] 44.3 fL 35.1-43.9 [facility] Immature granulocytes/100 WBC (Bld) 0.200 % 0.0-0.9 [facility] Comment on above: IG% - Immature Granu locytes (promyelocytes, myelocytes and metamyelocytes) > 1% indicates that a LEFT SHIFT is Present. Nucleated RBC/100 WBC (Bld) [Ratio] 0 % 0-5 [facility] LipaseOrdered By: Mario clarke on 09-19-2023 Lipase [Catalytic activity/Vol] 20 U/L Normal 13-75 [facility] Comment on above: Result Comment: Viviana mancia note: LIPASE revised reference range effective 23. New Lipase methodology. Expected to produce lower values than the previous assay method. NEW Reference Range: 13 - 75 U/L Performed By: #### L 100.0100, L501.2450, L500.4050 #### [facility] [place], [address] Please note:LIPASE r evised reference range effective 23. New Lipase methodology. Expected to produce lower values than the previous assay method. NEW Reference Range: 13 - 75 U/L Mucus LM Ql (Urine sed)Order ed By: Mario Caballero on 09-19-2023 Mucus Ql (Urine sed) 0 SEEN /hpf [facility] Nitrite Test strip Ql (U)Ord ered By: Mario Caballero on 09-19-2023 Nitrite Ql (U) Negative Negative [facility] No Panel InformationOrdered By: Mario Caballero on 09-19-2023 Estimated Creatinine Clearance Calc 44.12 ml/min [facility] Estimated GFR (MDRD) Amer 74 mL/min >60 [facility] Comment on above: GFR Calc Estimated GFR (MDRD) Non-Af Amer 61 mL/min >60 [facility] Comment on above: Non- GFR Calc Protein Test strip Ql (U)Ord ered By: Mario Caballero on 09-19-2023 Protein Ql (U) 15 mg/dl Negative [facility] Serum or plasma calcium bowen urement (mass/volume)Ordered By: Mario Caballero on 09-19-2023 Calcium [Mass/Vol] 9.6 mg/dL 8.5-10.1 [facility] Squamous epithelial cells de tection in urine sediment by light microscopyOrdered By: Mario Caballero on 09-19-2023 Epithelial cells.squamous LM Ql (Urine sed) 0-5 SEEN /hpf 5-10 [facility] Thin prep Papanicolaou smear with manual screeningOrdered By: Mario Caballero on 09-19-2023 Thin prep Papanicolaou smear with manual screening 27 U/L 15-37 [facility] Thin prep Papanicolaou smear with manual screening 8 - [facility] Urinalysis, Completeon 09-19 EPI,SQUAMOUS 0-5 SEEN Normal 5-10 [facility] Comment on above: Order Comment: CLEAN CATCH Performed By: #### L 400.0001 #### [facility] [address] [place], [address] WBC 0-5 SEEN Normal 0-5 [facility] Comment on above: Order Comment: CLEAN CATCH Performed By: #### L 400.0001 #### [facility] [address] [facility] [address] BACTERIA 0 SEEN Normal None Seen [facility] Comment on above: Order Comment: CLEAN CATCH Performed By: #### L 400.0001 #### [facility] [address] [place], [address] Mucus Ql (Urine sed) 0 SEEN Normal [facility] Comment on above: Order Comment: CLEAN CATCH Performed By: #### L [id number] #### [facility] [address] [place], [address] RBC 0 SEEN Normal 0-5 [facility] Comment on above: Order Comment: CLEAN CATCH Performed By: #### L [id number] #### [facility] [address] [place], [address] Urine blood detectionOrdered By: Mario Caballero on 09-19-2023 RBC Ql (U) Negative Negative [facility] RBC Ql (U) 0 SEEN /hpf 0-5 [facility] Urine clarityOrdered By: Micaela Caballero on 09-19-2023 Clarity (U) Clear Clear [facility] Urine color determinationOrd ered By: Mario Caballero on 09-19-2023 Color (U) Yellow Yellow [facility] Urine glucose detectionOrder ed By: Mario Caballero on 09-19-2023 Glucose Ql (U) Normal mg/dl Normal [facility] Urine leukocyte esterase det ection by dipstickOrdered By: Mario Caballero on 09-19-2023 Leukocyte esterase Test strip Ql (U) 25 /ul Negative [facility] Urine pHOrdered By: Mario stewart on 09-19-2023 pH (U) 5.0 [pH] 5.0 - 8.0 [facility] Urine sediment bacteria coun t by microscopy (number/high power field)Ordered By: Mario Caballero on 09-19-2023 Bacteria LM.HPF (Urine sed) [#/Area] 0 /[HPF] None Seen [facility] Urine specific gravity measu rementOrdered By: Mario Caballero on 09-19-2023 Specific gravity (U) [Rel density] 1.015 1.002-1.030 [facility] Urobilinogen Auto test strip Ql (U)Ordered By: Mario Caballero on 09-19-2023 Urobilinogen Ql (U) Normal mg/dl Normal [facility] Vital Signs Date Time Vital Sign Value Performing Clinician Faci lity 04-14-2024 14:58-0400 Diastolic blood pressure 70 mm[Hg] Emi Power MD Work Phone: [facility] 04-14-2024 14:58-0400 Heart rate 86 /min Emi Power MD Work Phone: [facility] 04-14-2024 14:58-0400 Respiratory rate 18 /min Emi Power MD Work Phone: [facility] 04-14-2024 14:58-0400 SaO2% (BldA) [Mass fraction] 100 % Emi Power MD Work Phone: [facility] 04-14-2024 14:58-0400 Systolic blood pressure 130 mm[Hg] Emi Power MD Work Phone: [facility] 04-14-2024 14:28-0400 Body temperature 97.3 [degF] Emi Power MD Work Phone: [facility] 04-14-2024 13:35-0400 Body height 162.6 cm Emi Power MD Work Phone: [facility] 04-14-2024 13:35-0400 Body mass index (BMI) [Ratio] 17.06 kg/m2 Emi Power MD Work Phone: [facility] 04-14-2024 13:35-0400 Body weight 45.09 kg Emi Power MD Work Phone: [facility] 04-09-2024 09:32-0400 Body height 162.6 cm Emi Power MD Work Phone: [facility] 04-09-2024 09:32-0400 Body mass index (BMI) [Ratio] 17.34 kg/m2 Emi Power MD Work Phone: [facility] 04-09-2024 09:32-0400 Body weight 45.81 kg Emi Power MD Work Phone: [facility] 04-09-2024 09:32-0400 Diastolic blood pressure 64 mm[Hg] Emi Power MD Work Phone: [facility] 04-09-2024 09:32-0400 Heart rate 88 /min Emi Power MD Work Phone: [facility] 04-09-2024 09:32-0400 Respiratory rate 16 /min Emi Power MD Work Phone: [facility] 04-09-2024 09:32-0400 Systolic blood pressure 88 mm[Hg] Emi Power MD Work Phone: [facility] 09-19-2023 15:32-0500 Diastolic blood pressure 88 mm[Hg] [facility] 09-19-2023 15:32-0500 Heart rate 62 /min [facility] 09-19-2023 15:32-0500 Respiratory rate 15 /min [facility] 09-19-2023 15:32-0500 SaO2% (BldA) [Mass fraction] 97 % [facility] 09-19-2023 15:32-0500 Systolic blood pressure 129 mm[Hg] [facility] 09-19-2023 12:33-0500 Body height 162.56 cm [facility] 09-19-2023 12:33-0500 Body mass index (BMI) [Ratio] 19 kg/m2 [facility] 09-19-2023 12:33-0500 Body temperature 99 [degF] [facility] 09-19-2023 12:33-0500 Body weight 50.34 kg [facility] Encounters Encounter Date Encounter Type Care Provider Facility Start: 06-03-2024 End: 06-04-2024 ambulatory Emi Power MD Work Phone: Gastroenterology Comment on above: Sharing PET scan res ults Start: 04-19-2024 ambulatory Emi Power MD Work Phone: Gastroenterology Comment on above: results Start: 04-19-2024 E-mail encounter fro m caregiver Emi Power MD Work Phone: Gastroenterology Start: 04-14-2024 End: 04-14-2024 Subsequent hospital visit by physician Emi Power MD Work Phone: [facility] [place] Comment on above: Malignant neoplasm o f ill-defined sites within digestive system (HCC) [C26.9] Start: 04-12-2024 End: 04-12-2024 Subsequent hospital visit by physician Ctscan Cs CT Scan Comment on above: Malignant neoplasm o f ill-defined sites within digestive system (HCC) [C26.9] Start: 04-09-2024 End: 04-09-2024 Patient encounter procedure Emi Power MD Work Phone: Gastroenterology Comment on above: Malignant neoplasm o f ill-defined sites within digestive system (HCC) (Primary Dx); Abnormal CT scan, gastrointestinal tract; Weight loss Start: 09-19-2023 End: 09-19-2023 Emergency department patient visit Godfrey Saeed Facility:[facility] Start: 09-19-2023 End: 09-19-2023 Emergency department patient visit [facility] Work Phone: Procedures Date Procedure Procedure Detail Performing Clinician Start: 04-14-2024 Colonoscopy flx dx w/collj spec when pfrmd Emi Power MD Work Phone: Start: 04-14-2024 Esophagogastroduodenoscopy transoral diagnostic Emi Power MD Work Phone: Start: 04-14-2024 Colonoscopy Emi Power MD Work Phone: Start: 09-19-2023 Computed tomography of abdomen and pelvis with intravenous contrast Plan of Treatment Date Care Activity Detail Author Start: 03-21-2027 Diabetes Screening Diabetes Screening [facility] Start: 04-14-2025 Screening for malignant neoplasm of colon [facility] Start: 07-20-2024 End: 07-20-2024 Patient encounter procedure 07/20/2024 9:00 AM EDT Office Visit Gastroenterology [address] [place] [address] [place] [address] [place] [address] [place] [address] [place] [id number] Follow up Gastroenterology Comment on above: Follow up Start: 06-06-2024 Influenza vaccination Influenza Vaccine (#1) [facility] Start: 04-14-2024 End: 04-14-2024 Patient encounter procedure 04/14/2024 2:30 PM EDT Appointment [facility] [address] [place] [address] [place] [address] [place] [address] [place] [address] [place] [address] Mariann Grider RN Watson, Shanaka, Tech Malignant neoplasm of ill-defined sites within digestive system (HCC) [C26.9] [facility] Comment on above: Malignant neoplasm of ill-defined sites within digestive system (HCC) [C26.9] Start: 04-12-2024 End: 04-12-2024 Patient encounter procedure 04/12/2024 2:[address] Scan [address] [facility] [place] [address] Malignant neoplasm of ill-defined sites within digestive system (HCC) [C26.9] CT Scan Comment on above: Malignant neoplasm of ill-defined sites within digestive system (HCC) [C26.9] Start: 10-06-2023 Advance Directive Discussion Advance Directive Discussion [facility] Start: 10-06-2023 Behavioral Health Screening Behavioral Health Screening [facility] Start: 09-19-2023 Chemotherapy care management [facility] Start: 06-06-2023 Covid-19 Vaccine ( season) Covid-19 Vaccine ( season) [facility] Start: 2020 Pneumococcal Vaccine: 65+ (1 of 1 - PCV) Pneumococcal Vaccine: 65+ (1 of 1 - PCV) [facility] Start: 2020 Screening for osteoporosis Bone Density Screening [facility] Start: 2015 RSV Vaccine (1 - 1-dose 60+ series) RSV Vaccine (1 - 1-dose 60+ series) [facility] Start: 2005 Shingrix Vaccine (1 of 2) Shingrix Vaccine (1 of 2) [facility] Start: 2000 Lipid panel Lipid Screening [facility] Start: 2000 Screening for malignant neoplasm of colon [facility] Start: 1995 Screening for malignant neoplasm of breast Mammogram Screening [facility] Start: 1974 Urine microalbumin profile DTaP,Tdap,Td Vaccine (1 - Tdap) [facility] Start: 1973 Anxiety Screening Anxiety Screening [facility] Start: 1973 Depression Screening Depression Screening [facility] Start: 1973 Hepatitis C screening Hepatitis C Screening [facility] End: 05-09-2025 CT Small bowel W contrast PO and W contrast IV CT ENTEROGRAPHY W IVCON Radiology Routine Malignant neoplasm of ill-defined sites within digestive system (HCC) Abnormal CT scan, gastrointestinal tract Weight loss 1 Occurrences starting 04/09/2024 until 05/09/2025 [facility] Work Phone: Comment on above: 1 Occurrences starting 04/09/2024 until 05/09/2025 CT Small bowel W contrast PO and W contrast IV CT ENTEROGRAPHY W IVCON Radiology Routine Malignant neoplasm of ill-defined sites within digestive system (HCC) Abnormal CT scan, gastrointestinal tract Weight loss 04/12/2024 2:50 PM EDT [facility] Work Phone: End: 04-09-2025 EGD DIAGNOSTIC EGD DIAGNOSTIC Endoscopy Routine Malignant neoplasm of ill-defined sites within digestive system (HCC) Abnormal CT scan, gastrointestinal tract Weight loss 1 Occurrences starting 04/09/2024 until 04/09/2025 [facility] Comment on above: 1 Occurrences starting 04/09/2024 until 04/09/2025 End: 04-09-2025 Flexible sigmoidoscopy study COLONOSCOPY DIAGNOSTIC Endoscopy Routine Abnormal CT scan, gastrointestinal tract Weight loss 1 Occurrences starting 04/09/2024 until 04/09/2025 [facility] Comment on above: 1 Occurrences starting 04/09/2024 until 04/09/2025 Patient Education Cancer Tx Cont rol Nausea Vomiting Dehydration [facility] Work Phone: Patient referral [facility] Work Phone: SURGICAL PATHOLOGY [facility] Work Phone: Comment on above: Release Upon Ordering for 1 Occurrences starting 04/14/2024 Immunizations Immunization Date Immunization Notes Care Provider Greta reese 12-07-2015 influenza virus vacc ine, unspecified formulation Emi Power MD Work Phone: [facility] Payers Date Payer Category Payer Private Health Insurance [facility] AARP SUPPLEMENT [id number] 2023-Present [phone] [address] [place] [address] Indemnity [id number] 2023 Medicare [id number] 2023 Self-pay 2023 Unknown [id number] 2020 Medicare MEDICARE MEDICAR E A AND B [id number] 2020-Present [phone] [place] [address] Medicare [id number] Unknown [id number] Social History Date Type Detail Facility [facility]: [facility] Start: 04-09-2024 Tobacco use and exposure Smokeless tobacco non-user [facility] Start: 04-09-2024 End: 04-14-2024 Alcohol intake Ex-drinker (finding) [facility] Start: 03-22-2024 End: 04-09-2024 History of Social function [facility] Start: 03-22-2024 End: 04-09-2024 Tobacco use panel [facility] National Score (1-100), lower number is lower risk 67 [facility] Start: 1955 Sex Assigned At Not on file C [facility] Start: 09-19-2023 Tobacco smoking stat [facility] Unknown if ever smoked [facility] Start: 1955 Sex Assigned At Female [facility] Clinical Notes 04-09-2024 to 06-03-2024 Telephone Encounter - Silvana Mena LPN - 06/03/2024 1:43 PM EDTTelephone Encounter - Silvana Mena LPN - 06/03/2024 1:43 PM EDTChichi Phillips RN - 04/14/2024 3:10 PM EDT Note Date & Type Note Facility 06-03-2024 Telephone encounter Note Message routed to . Silvana Mena LPN [facility] 06-03-2024 Miscellaneous Notes Message routed to . Silvana Mena LPN documented in this encounter [facility] 04-14-2024 Nurse Note Phase 2 criteria met. Abdomen soft, non-tender, non-distended. Discharge instructions reviewed with pt. and granddaughter. Instructed pt. to go to nearest ER if experiencing severe abdominal pain, vomiting blood, rectal bleeding, or temp >101F. Verbalized understanding. IV removed with catheter tip intact. No redness or swelling noted at site. Discharged in stable condition via wheelchair and accompanied by nurse. POST OP LEARNING RESPONSE INSTRUCTION PROVIDED TO: Patient METHOD OF INSTRUCTION: Written instruction/Handouts Verbal instruction PATIENT / FAMILY RESPONSE: Verbalizes understanding of: POST-PROCEDURE INSTRUCTIONS-Correct actions to take to reduce post procedure complications FOLLOW-UP PLAN: Patient instructed to call with any further issues SUPPLEMENTAL MATERIAL: None REFERRAL (RECOMMENDATION): None Electronically Signed By: Chichi Phillips RN In Department: [facility] 04-14-2024 Nurse Note Phase 2 criteria met. Abdomen soft, non-tender, non-distended. Discharge instructions reviewed with pt. and granddaughter. Instructed pt. to go to nearest ER if experiencing severe abdominal pain, vomiting blood, rectal bleeding, or temp >101F. Verbalized understanding. IV removed with catheter tip intact. No redness or swelling noted at site. Discharged in stable condition via wheelchair and accompanied by nurse. POST OP LEARNING RESPONSE INSTRUCTION PROVIDED TO: Patient METHOD OF INSTRUCTION: Written instruction/Handouts Verbal instruction PATIENT / FAMILY RESPONSE: Verbalizes understanding of: POST-PROCEDURE INSTRUCTIONS-Correct actions to take to reduce post procedure complications FOLLOW-UP PLAN: Patient instructed to call with any further issues SUPPLEMENTAL MATERIAL: None REFERRAL (RECOMMENDATION): None Electronically Signed By: Chichi Phillips RN In Department: [facility] Cecum reached at 1414. PRE OP LEARNING ASSESSMENT PROCEDURE/SURGERY: GI PROCEDURES: Colonoscopy and EGD READINESS TO LEARN COGNITIVE ABILITY: Alert and oriented MOTIVATION TO LEARN: Eager Interested FAMILY SUPPORT: High - Very involved in pt care PATIENT LEARNS BEST BY: Individual Instruction Verbal Instruction FACTORS AFFECTING LEARNING: None PHYSICAL LIMITATIONS AFFECTING LEARNING: None Electronically Signed By: Tammy Saldaña RN In Department: [facility] documented in this encounter [facility] 04-14-2024 Anesthesiology Postoperative evaluation and management note POST ANESTHESIA DISCHARGE NOTE SERVICE DATE: 04/14/2024 SERVICE TIME: 1431 : 1955 Vitals: BP 137/55 Pulse 67 Temp 36.4 C (97.6 F) (Temporal) Resp 11 Ht 162.6 cm (5' 4) Wt 45.1 kg (99 lb 6.4 oz) SpO2 100% BMI 17.06 kg/m Validated Vital Signs: Yes POST ANES STATUS: No apparent anesthetic complications. The patient is appropriately hydrated with stable respiratory and cardiovascular status. Patient has safe and adequate airway control and stable oxygen saturation. The patient has appropriate pain relief and no significant post operative nausea or vomiting. The patient has achieved baseline mental status. The patients temperature is appropriate for discharge The patient has achieved baseline mental status and is appropriate for discharge. SIGNATURE: Alton Merino DO PATIENT NAME: Brittany Harris DATE: April 14, 2024 TIME: 2:32 PM [facility] Work Phone: 04-14-2024 History and physical note ENDO HISTORY AND PHYSICAL EXAMINATION SHORT FORM EVALUATION DATE: 12/12/2021 EVALUATION TIME: 9:53 AM CHIEF COMPLAINT: wt loss, abn CT HPI: This patient presents with wt loss, abn CT. 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 No pertinent family history. ALLERGIES: ALLERGIES Allergen Reactions Percocet [Oxycodone* Itching MEDICATIONS: Prior to Admission Medications: peg-electrolyte soln (NULYTELY) 420 gram suspension Take 4,000 mL by mouth as directed. levothyroxine 88 mcg cap Take 88 mcg by mouth daily before breakfast. ondansetron (ZOFRAN) 8 mg tablet Take 8 mg by mouth every 8 hours as needed for nausea/vomiting. docusate sodium (COLACE ORAL) Take by mouth. pantoprazole DR (PROTONIX) 40 mg tablet Take 40 mg by mouth once daily. pembrolizumab 2 mg/kg/dose in NaCl 0.9% 50 mL Inject 2 mg/kg/dose intravenously one time only. diazePAM (VALIUM) 10 mg tablet Take 10 mg by mouth every 6 hours as needed for anxiety. morphine IR 15 mg tablet Take 15 mg by mouth every 4 hours as needed for pain. hydrocortisone (CORTEF) 20 mg tablet Take 10 mg by mouth once daily. No current facility-administered medications for this encounter. 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 GI: See HPI PHYSICAL EXAM: General Appearance: well appearing, alert, in no acute distress Lungs: Lungs clear to auscultation. No wheezing, rhonchi, rales. Heart: RRR without murmur, gallop, or rubs. No ectopy Abdomen: Abdomen soft, non-tender, non-distended. Bowel sounds normal. No masses, organomegaly Extremities: No clubbing, cyanosis, or edema. IMPRESSION: abn CT, wt loss PLAN OF TREATMENT: Colonoscopy and Esophagogastroduodenoscopy (EGD) Emi Power MD April 14, 2024 1:48 PM [facility] Work Phone: 04-14-2024 History and physical note ENDO HISTORY AND PHYSICAL EXAMINATION SHORT FORM EVALUATION DATE: 12/12/2021 EVALUATION TIME: 9:53 AM CHIEF COMPLAINT: wt loss, abn CT HPI: This patient presents with wt loss, abn CT. 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 No pertinent family history. ALLERGIES: ALLERGIES Allergen Reactions Percocet [Oxycodone* Itching MEDICATIONS: Prior to Admission Medications: peg-electrolyte soln (NULYTELY) 420 gram suspension Take 4,000 mL by mouth as directed. levothyroxine 88 mcg cap Take 88 mcg by mouth daily before breakfast. ondansetron (ZOFRAN) 8 mg tablet Take 8 mg by mouth every 8 hours as needed for nausea/vomiting. docusate sodium (COLACE ORAL) Take by mouth. pantoprazole DR (PROTONIX) 40 mg tablet Take 40 mg by mouth once daily. pembrolizumab 2 mg/kg/dose in NaCl 0.9% 50 mL Inject 2 mg/kg/dose intravenously one time only. diazePAM (VALIUM) 10 mg tablet Take 10 mg by mouth every 6 hours as needed for anxiety. morphine IR 15 mg tablet Take 15 mg by mouth every 4 hours as needed for pain. hydrocortisone (CORTEF) 20 mg tablet Take 10 mg by mouth once daily. No current facility-administered medications for this encounter. 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 GI: See HPI PHYSICAL EXAM: General Appearance: well appearing, alert, in no acute distress Lungs: Lungs clear to auscultation. No wheezing, rhonchi, rales. Heart: RRR without murmur, gallop, or rubs. No ectopy Abdomen: Abdomen soft, non-tender, non-distended. Bowel sounds normal. No masses, organomegaly Extremities: No clubbing, cyanosis, or edema. IMPRESSION: abn CT, wt loss PLAN OF TREATMENT: Colonoscopy and Esophagogastroduodenoscopy (EGD) Emi Palekar, MD April 14, 2024 1:48 PM documented in this encounter [facility] 04-14-2024 Nurse Note Cecum reached at 1414. [facility] 04-14-2024 Procedure note POST ANESTHESIA DISCHARGE NOTE SERVICE DATE: 04/14/2024 SERVICE TIME: 2 : 1955 Vitals: BP 137/55 Pulse 67 Temp 36.4 C (97.6 F) (Temporal) Resp 11 Ht 162.6 cm (5' 4) Wt 45.1 kg (99 lb 6.4 oz) SpO2 100% BMI 17.06 kg/m Validated Vital Signs: Yes POST ANES STATUS: No apparent anesthetic complications. The patient is appropriately hydrated with stable respiratory and cardiovascular status. Patient has safe and adequate airway control and stable oxygen saturation. The patient has appropriate pain relief and no significant post operative nausea or vomiting. The patient has achieved baseline mental status. The patients temperature is appropriate for discharge The patient has achieved baseline mental status and is appropriate for discharge. SIGNATURE: Alton Merino DO PATIENT NAME: Brittany Harris DATE: April 14, 2024 TIME: 2:32 PM documented in this encounter [facility] 04-14-2024 Nurse Note PRE OP LEARNING ASSESSMENT PROCEDURE/SURGERY: GI PROCEDURES: Colonoscopy and EGD READINESS TO LEARN COGNITIVE ABILITY: Alert and oriented MOTIVATION TO LEARN: Eager Interested FAMILY SUPPORT: High - Very involved in pt care PATIENT LEARNS BEST BY: Individual Instruction Verbal Instruction FACTORS AFFECTING LEARNING: None PHYSICAL LIMITATIONS AFFECTING LEARNING: None Electronically Signed By: Tammy Saldaña RN In Department: [facility] [place] [facility] 04-12-2024 Miscellaneous Notes Radiology Service Progress Note DATE OF SERVICE: April 12, 2024 TIME: 2:37 PM PATIENT IDENTITY VERIFICATION COMPLETED USING TWO (2) STANDARD IDENTIFIERS: Name and Date of confirmed by patient verbally. FALL SCREENING: Has the patient had 2 falls in the last year or 1 fall with injury or currently using an Ambulatory Assistive Device (Walker, Cane, Wheelchair, Crutches, etc.)? No PATIENT GENDER DATA: Female. status: : No status: NO. PATIENT RELEVANT IMPLANT DATA REVIEWED: Not Applicable PATIENT PRESENTS WITH AN IMPLANTABLE OR ATTACHED HEATING ELEMENT WINDER: No ALLERGIES: Reviewed and unchanged CONTRAST ALLERGY: NO. EXAM: CT -CONTRAST INDUCED NEPHROPATHY RISK FACTORS: Patient age > 60 years CREATININE: Creatinine Date Value Ref Range Status 03/21/2024 1.33 (H) 0.58 - 0.96 mg/dL Final Estimated Glomerular Filtration Rate Date Value Ref Range Status 03/21/2024 44 (L) >=60 mL/min/1.73m Final Comment: Estimated Glomerular Filtration Rate (eGFR) is calculated using the 2020 CKD-EPI creatinine equation. This equation utilizes serum creatinine, sex, and age as parameters. The creatinine assay has traceable calibration to isotope dilution-mass spectrometry. Refer to KDIGO guidelines for clinical interpretation. In patients with unstable renal function, e.g. those with acute kidney injury, the eGFR may not accurately reflect actual GFR. P.O.C.T. RESULTS: N/A April 12, 2024 TREATMENT: N/A PERIPHERAL IV DATA: Ambulatory: A peripheral IV was started in the Left antecubital site with a Angio cath: 22 gauge. RADIOLOGY DEPARTMENT: CT; Exam(s) Completed: Enterography SIGNATURE: RT Sher(R) PATIENT NAME: Brittany Harris DATE: April 12, 2024 TIME: 2:37 PM documented in this encounter [facility] 04-12-2024 Progress note Formatting of t his note is different from the original. Radiology Service Progress Note DATE OF SERVICE: April 12, 2024 TIME: 2:37 PM PATIENT IDENTITY VERIFICATION COMPLETED USING TWO (2) STANDARD IDENTIFIERS: Name and Date of confirmed by patient verbally. FALL SCREENING: Has the patient had 2 falls in the last year or 1 fall with injury or currently using an Ambulatory Assistive Device (Walker, Cane, Wheelchair, Crutches, etc.)? No PATIENT GENDER DATA: Female. status: : No status: NO. PATIENT RELEVANT IMPLANT DATA REVIEWED: Not Applicable PATIENT PRESENTS WITH AN IMPLANTABLE OR ATTACHED HEATING ELEMENT WINDER: No ALLERGIES: Reviewed and unchanged CONTRAST ALLERGY: NO. EXAM: CT -CONTRAST INDUCED NEPHROPATHY RISK FACTORS: Patient age > 60 years CREATININE: Creatinine Date Value Ref Range Status 03/21/2024 1.33 (H) 0.58 - 0.96 mg/dL Final Estimated Glomerular Filtration Rate Date Value Ref Range Status 03/21/2024 44 (L) >=60 mL/min/1.73m Final Comment: Estimated Glomerular Filtration Rate (eGFR) is calculated using the 2020 CKD-EPI creatinine equation. This equation utilizes serum creatinine, sex, and age as parameters. The creatinine assay has traceable calibration to isotope dilution-mass spectrometry. Refer to KDIGO guidelines for clinical interpretation. In patients with unstable renal function, e.g. those with acute kidney injury, the eGFR may not accurately reflect actual GFR. P.O.C.T. RESULTS: N/A April 12, 2024 TREATMENT: N/A PERIPHERAL IV DATA: Ambulatory: A peripheral IV was started in the Left antecubital site with a Angio cath: 22 gauge. RADIOLOGY DEPARTMENT: CT; Exam(s) Completed: Enterography SIGNATURE: RT Sher(R) PATIENT NAME: Brittany Harris DATE: April 12, 2024 TIME: 2:37 PM [facility] 04-09-2024 History of Present illness Narrative REFERRING PHYSICIAN: SELF CHIEF COMPLAINT: abd pain HISTORY: 68 y/o woman with h/o metastatic endometrial cancer s/p surgery in 2021. Report of recurrence in LNs. On Keytruda now. Recently in our ER for abdominal pain of about one week. LLQ. Worsened with eating. Had nausea no vomiting. Some subjective fevers. CT with ? Diverticulitis in small bowel and thickening in colon. Given augmentin. Pain improved but has had intermittent pain now since time of dx of endometrial cancer. Lost about 15lbs in the 6 months. Says does not tolerate a lot of foods, lack of appetite. Colonoscopy 2021 GI SPECIFIC REVIEW OF SYSTEMS: Patient has a NEGATIVE GI history for difficulty swallowing, heartburn, early satiety, nausea, vomiting, abdominal pain, recent changes in bowel movements, bloody or black bowel movements, constipation, diarrhea and recent change in weight. PAST MEDICAL HISTORY Diagnosis Date Diverticulitis Ovarian cancer (HCC) PAST SURGICAL HISTORY Procedure Laterality Date PAST SURGICAL HISTORY OF Patient has no known allergies. Current Outpatient Medications Medication Sig levothyroxine 88 mcg cap Take 88 mcg by mouth daily before breakfast. pantoprazole DR (PROTONIX) 40 mg tablet Take 40 mg by mouth once daily. ondansetron (ZOFRAN) 8 mg tablet Take 8 mg by mouth every 8 hours as needed for nausea/vomiting. pembrolizumab 2 mg/kg/dose in NaCl 0.9% 50 mL Inject 2 mg/kg/dose intravenously one time only. diazePAM (VALIUM) 10 mg tablet Take 10 mg by mouth every 6 hours as needed for anxiety. morphine IR 15 mg tablet Take 15 mg by mouth every 4 hours as needed for pain. hydrocortisone (CORTEF) 20 mg tablet Take 10 mg by mouth once daily. No current facility-administered medications for this visit. No family history on file. Social History Tobacco Use Smoking status: Never Smokeless tobacco: Never Substance Use Topics Alcohol use: Not Currently REVIEW OF SYSTEMS: GENERAL: no weight loss, malaise or fevers HEENT: no changes in hearing or vision LUNGS: negative for cough, wheezing and shortness of breath HEART: negative for chest pain, leg swelling and palpitations SKIN: negative for rashes or jaundice GASTROINTESTINAL: see history of present illness MUSCULOSKELETAL: negative for back pain, muscle pain and arthritis NEUROLOGIC: no tremors, headaches, memory loss or seizures PSYCHIATRIC: negative for sleep disturbance, mood disorder and recent psychosocial stressors ENDOCRINOLOGIC: no diabetes or thyroid disease The remainder of the review of systems is noncontributory. PHYSICAL EXAMINATION Blood pressure 88/64, pulse 88, resp. rate 16, height 162.6 cm (5' 4), weight 45.8 kg (101 lb). GENERAL: alert, oriented x 3, pleasant and in no acute distress HEENT: sclera anicteric, conjunctiva not pale nor hyperemic, moist oral mucosa without ulcerations NECK: supple, no palpable neck or supraclavicular lymph nodes LUNGS: breath sounds clear to auscultation bilaterally, no crackles, rhonchi, or wheezes HEART: regular rate and rhythm, no murmurs or gallops ABDOMEN: not distended, normal bowel sounds, soft and depressible, no guarding or rebound, no palpable mass, liver not enlarged to percussion EXTREMITIES: no cyanosis or edema SKIN: no jaundice, no spider angiomas, no palmar erythema Results CT ABD/PEL W IVCON ([facility]#[id number]) (Order [id number]) Patient Info Patient Name Sex Brittany Norris ([id number]) Female 1955 03/21/2024 6:14 PM - Radiology, [place] In Impression IMPRESSION: 1. Mild wall thickening in the descending colon. This may suggest colitis, but underlying lesion is difficult to exclude. Clinical correlation is recommended. 2. Focal outpouching in a segment of distal small bowel with associated wall thickening, suggestive of a diverticulum +/- small bowel diverticulitis. Comparison with any prior outside examinations is recommended. 3. Hepatic steatosis. ASSESSMENT: Abnormal CT of both small bowel and colon. May be related to her metastatic endometrial cancer vs diverticulitis vs less likely IBD vs infectious that is now resolved. Given CT findings as well as wt loss, will do egd/colonoscopy and CTE to evaluate further. F/u after studies PLAN: EGD/Colonoscopy, risks/benefits explained to patient who is agreeable. CTE Emi Power MD documented in this encounter [facility] Evaluation note Diagnosis Malignant neoplasm of ill-defined sites within digestive system (HCC)- Primary Malignant neoplasm of ill-defined sites of digestive organs and peritoneum Abnormal CT scan, gastrointestinal tract Nonspecific (abnormal) findings on radiological and other examination of gastrointestinal tract Weight loss Loss of weight [facility] Diagnosis Malignant neoplasm of ill-defined sites within digestive system (HCC) Malignant neoplasm of ill-defined sites of digestive organs and peritoneum Abnormal CT scan, gastrointestinal tract Nonspecific (abnormal) findings on radiological and other examination of gastrointestinal tract Weight loss Loss of weight documented in this encounter [facility] note* Diagnosis Malignant neoplasm of ill-defined sites within digestive system (HCC) Malignant neoplasm of ill-defined sites of digestive organs and peritoneum Abnormal CT scan, gastrointestinal tract Nonspecific (abnormal) findings on radiological and other examination of gastrointestinal tract Weight loss Loss of weight documented in this encounter [facility] noteNo assessment information availableWLima City Hospital Work Phone: Hospital Discharge instructions Additional Instructions Please follow-up with your oncologistWLima City Hospital Work Phone: Reason for referral (narrative)* Outpatient Procedure (Routine) - Authorized Specialty Diagnoses / Procedures [facility] To Contact [facility] Diagnoses Abnormal CT scan, gastrointestinal tract Weight loss Procedures COLONOSCOPY DIAGNOSTIC COLONOSCOPY FLX DX W/COLLJ SPEC WHEN PFRMD Emi Power MD [address] [place] [address] [place] [address] [address] Referral ID Status Reason Start Date Expiration Date Visits Requested Visits Authorized [id number] Authorized Auto-Generat ed Referral 04/09/2024 04/09/2025 1 1 * Outpatient Procedure (Routine) - Authorized Specialty Diagnoses / Procedures Referred By Sloan guerrero Referred To Contact [facility] Diagnoses Malignant neoplasm of ill-defined sites within digestive system (HCC) Abnormal CT scan, gastrointestinal tract Weight loss Procedures EGD DIAGNOSTIC ESOPHAGOGASTRODUODENOSCOPY TRANSORAL DIAGNOSTIC Emi Power MD [address] [place] [address] [place] [address] [facility] [address] [place] [id number] Referral ID Status Reason Start Date Expiration Date Visits Requested Visits Authorized [id number] Authorized Auto-Generat ed Referral 04/09/2024 04/09/2025 1 1 * MRI/CT (Routine) - Authorized Specialty Diagnoses / Procedures [facility] Referred To Contact CT IMAGING Diagnoses Malignant neoplasm of ill-defined sites within digestive system (HCC) Abnormal CT scan, gastrointestinal tract Weight loss Procedures CT ENTEROGRAPHY W IVCON CT ABD & [place] [address] [place] [address] [place] [address] [place] [id number] Referral ID Status Reason Start Date Expiration Date Visits Requested Visits Authorized [id number] Authorized Auto-Generat ed Referral 04/09/2024 05/09/2025 1 1 [facility] for referral (narrative)* Outpatient Procedure (Routine) - Closed Specialty Diagnoses / Procedures Referred By Contac t Referred To Contact [facility] Diagnoses Abnormal CT scan, gastrointestinal tract Weight loss Procedures COLONOSCOPY DIAGNOSTIC COLONOSCOPY FLX DX W/COLLJ SPEC WHEN PFRMD Emi Power MD [address] [place] [address] [place] [address] [facility] [place] [id number] Referral ID Status Reason Start Date Expiration Date V isits Requested Visits Authorized [id number] Closed Auto-Generate d Referral 04/09/2024 04/09/2025 1 1 * Outpatient Procedure (Routine) - Closed Specialty Diagnoses / Procedures Referred By Contac t Referred To Contact [facility] Diagnoses Malignant neoplasm of ill-defined sites within digestive system (HCC) Abnormal CT scan, gastrointestinal tract Weight loss Procedures EGD DIAGNOSTIC ESOPHAGOGASTRODUODENOSCOPY [place] [address] [place] [address] [place] [address] [address] Referral ID Status Reason Start Date Expiration Date V isits Requested Visits Authorized [id number] Closed Auto-Generate d Referral 04/09/2024 04/09/2025 1 1 [facility] for visit Narrative* Outpatient Procedure (Routine) - Closed Specialty Diagnoses / Procedures Referred By Contac t Referred To Contact [facility] Diagnoses Abnormal CT scan, gastrointestinal tract Weight loss Procedures COLONOSCOPY DIAGNOSTIC COLONOSCOPY FLX DX W/COLLJ SPEC WHEN Emi Ansari MD [address] [facility] [place] [address] [facility] [place] [address] [place] [address] Referral ID Status Reason Start Date Expiration Date V isits Requested Visits Authorized [id number] Closed Auto-Generate d Referral 04/09/2024 04/09/2025 1 1 [facility] Summary Purpose Family History Relationship Condition Age at Onset Recorded Date/T luna Not Specified History of hysterectomy for malignancy U nknown History of hysterectomy Unknown History of tonsillectomy Unknown Complication of implanted vaginal mesh Un known Advance Directives Advance Directive Response Recorded Date/ Time Living Will Yes September 19 1:10pm Power of Optical Goods Drilling Machine Operator Yes September 19, 2023 1:10pm Name of Medical Power of Optical Goods Drilling Machine Operator SON September 19, 2023 1:10pm Chief Complaint and Reason for Visit Chief Complaint abd Additional Source Comments INFORMATION SOURCE (unrecogn ized section and content) DATE CREATED AUTHOR 09/26/2023 [facility] Source Comments (unrecognize d section and content) In the event this informatio n is protected by the Federal Confidentiality of Alcohol and Drug Abuse Patient Records regulations: The Federal rules restrict any use of the information to criminally investigate or prosecute any alcohol or drug abuse patient.[facility] the event this information is protected by the Federal Confidentiality of Alcohol and Drug Abuse Patient Records regulations: The Federal rules restrict any use of the information to criminally investigate or prosecute any alcohol or drug abuse patient.[facility] HospitalIn the event this information is protected by the Federal Confidentiality of Alcohol and Drug Abuse Patient Records regulations: The Federal rules restrict any use of the information to criminally investigate or prosecute any alcohol or drug abuse patient.[facility] HospitalIn the event this information is protected by the Federal Confidentiality of Alcohol and Drug Abuse Patient Records regulations: The Federal rules restrict any use of the information to criminally investigate or prosecute any alcohol or drug abuse patient.[facility] Hospital[facility] the event this information is protected by the Federal Confidentiality of Alcohol and Drug Abuse Patient Records regulations: The Federal rules restrict any use of the information to criminally investigate or prosecute any alcohol or drug abuse patient.[facility] Reason for Visit (unrecogniz ed section and content) Reason Comments Consult Follow up from ER vi sit Abdominal Pain Specialty Diagnoses / Procedures Referred By Sloan t Referred To Contact CT IMAGING Diagnoses Malignant neoplasm of ill-defined sites within digestive system (HCC) Abnormal CT scan, gastrointestinal tract Weight loss Procedures CT ENTEROGRAPHY W IVCON CT ABD & PELVIS W/CONTRAST Emi Power MD [address] [place] [address] [place] [id number] Referral ID Status Reason Start Date Expiration Date V isits Requested Visits Authorized [id number] Closed Auto-Generate d Referral 04/09/2024 05/09/2025 1 1 Care Teams (unrecognized sec tion and content) Die Operator Relationship Specialty [place] [address] [place] [address] PCP - General Nurse Practitioner 03/21/24 Die Operator Relationship Specialty [place] [address] [place] [address] PCP - General Nurse Practitioner 03/21/24 Die Operator Relationship Specialty [place] [address] [place] [address] PCP - General Nurse Practitioner 03/21/24 Team Status: Active Member Role Status Dates No Primary Care Physician Primary Care Provider Active Team Status: Inactive Member Role Status Dates Godfrey Saeed MD Emergency Provider Active No Primary Care Physician Primary Care Provider Active Die Operator Relationship Specialty [place] [address] [place] [address] PCP - General Nurse Practitioner 03/21/24 Goals (unrecognized section and content) Goals may be documented in a n alternate section FOR RECORDS PERTAINING TO PATIENTS WHO ARE OR HAVE BEEN ENROLLED IN A CHEMICAL DEPENDENCY/SUBSTANCEABUSE PROGRAM, SOME INFORMATION MAY BE OMITTED. This clinical summary was aggregated from multiple sources. Caution should be exercised in using it in the provision of clinical care. This summary normalizes information from multiple sources, and as a consequence, information in this document may materially change the coding, format and clinical context of patient data. In addition, data may be omitted in some cases. CLINICAL DECISIONS SHOULD BE BASED ON THE PRIMARY CLINICAL RECORDS. [employer] [facility]. provides no warranty or guarantee of the accuracy or completeness of information in this document.
[2025-03-08 07:40] LABS: Free T3 1.8 pg/mL (2.18-3.98)
[2025-03-09 16:09] LABS: Adrenocorticotropic Hormone < 1.5 pg/mL (7.2-63.3)
== END | disposition home or self-care (01) ==
LOC: LAB 06:18
DX: C54.8 Malignant neoplasm of overlapping sites of corpus uteri (principal)
CPT/HCPCS: 36415; 82024; 82533; 84480; 84481

== ENCOUNTER → 2025-03-16 | Outpatient (CLI) | payer MEDICARE, OTHER, SELFPAY ==
--- OUTSIDE RECORDS SUMMARY | 2025-03-16 08:50 | XMS RPT_ITS | CCD ---
Author Organization [facility] Care Team Providers Care Contact Lens Polisher Name Role Phone Kimberly BOTANY LABORATORY ASSISTANT, Zonia Mclaughlin Primary Care Provider ZONIA HARRIS Primary Care Provider SALLY MELVIN Attending Provider [phone] SALLY MELVIN Referring Provider [phone] OOTDR PULL Referring Unavailable OOTDR PULL Attending Unavailable OOTDR PULL Primary Care Unavailable Allergies Allergy Classification Reported Allergen(s) Allergy Type Date of Onset Reaction(s) Facility (4 sources) Acetaminophen / oxyCODONE Drug Allergy 04-12-2024 Itching [facility] Medications Current Medications Medication Drug Class(es) Dates [...] Active ondansetron 4 mg disintegrating oral tablet (7 sources) Serotonin-3 Receptor Antagonist Start: 023 take 1 tablet by mouth every eight hours as needed for nausea Ondansetron 4 mg tablet,disintegratin g Active 4 mg PO EVERY 8 HOURS NEEDED as needed for Nausea September 19, 2023 1:00am take 1 tablet by darnell th every [...] time only. 0 Active polyethylene glycol 3350 036975 mg / potassium chloride 1480 mg / sodium bicarbonate 5720 mg / sodium chloride 61785 mg powder for oral solution (4 sources) [...] sites within the digestive system] 04-09-2024 Chronic Cancer of uterus (1 source) Malignant neoplasm of overlapping sites of corpus uteri; Translations: [Malignant neoplasm of overlapping sites of corpus uteri] Onset: 03-14-2025 Chronic Fluid and electrolyte disorders (2 sources) Dehydration; Translations: [Dehydration] 09-19-2023 Episodic Nausea and vomiting (2 sources) Nausea and vomiting; Translations: [Nausea with vomiting, unspecified] 09-19-2023 Episodic Past or Other Problems Problem Classification Problem Date Documented Da te Episodic/Chronic Other nutritional; endocrine; and metabolic disorders (3 sources) Weight loss; Translations: [Abnormal weight loss] 04-09-2024 Episodic Other screening for suspected conditions (not mental disorders or infectious disease) (3 sources) Imaging of gastrointestinal tract abnormal; Translations: [Abnormal findings on diagnostic imaging of other parts of digestive tract] 04-09-2024 Episodic Results Test Name Value Interpretation Reference Range Facility Adrenocorticotropic Hormoneo n 03-09-2025 ACTH < 1.5 Low 7.2-63.3 [facility] Comment on above: Order Comment: N Result Comment: ACTH reference interval for samples collected between 7 and 10 AM. Performed at: [address] [id number] Planning Supervisor: Alcides Borrero PhD, Phone: [phone] Performed By: #### L 3300.1000, L501.58137, L3410.9992, L501.9187, L509.6001 #### [facility] [address] [place], [address] L3410.9992on 03-09-2025 [facility] Misc. COMMENT Normal . [facility] Comment on above: Order Comment: [id number] THROID PROFILE W TSH TIGER RT Result Comment: Test Ordered: [id number] Thyroid Panel With TSH TSH 0.291 [L ] uIU/mL CB Reference Range: 0.450-4.500 Thyroxine (T4) 6.2 ug/dL CB Reference Range: 4.5-12.0 T3 Uptake 24 % CB Reference Range: 24-39 Free Thyroxine Index 1.5 Reference Range: 1.2-4.9 Performed at: [address] [id number] Planning Supervisor: Alcides Borrero PhD, Phone: [phone] Performed By: #### L 3300.1000, L501.63768, L3410.9992, L501.9187, L509.6001 #### [facility] [address] [place], [address] Free T3on 03-08-2025 Free T3 [Mass/Vol] 1.8 pg/mL Low 2.18-3.98 [facility] Comment on above: Order Comment: N Performed By: #### L 3300.1000, L501.73709, L3410.9992, L501.9187, L509.6001 #### [facility] [address] [place], [address] Free T3 [Mass/Vol] 1.8 pg/mL Low 2.18-3.98 [facility] L501.9187on 03-08-2025 T3 Total 0.60 ng/mL Low 0.80-2.00 [facility] Comment on above: Performed By: #### L 3300.1000, L501.03470, L3410.9992, L501.9187, L509.6001 #### [facility] [address] [place], [address] L509.6001on 03-08-2025 CORTISOL 32.10 ug/dL High 6.02-18.40 [facility] Comment on above: Performed By: #### L 3300.1000, L501.90140, L3410.9992, L501.9187, L509.6001 #### [facility] [address] [place], [address] Serum or plasma cortisol cory surement (mass/volume)on 03-08-2025 Cortisol [Mass/Vol] 32.10 ug/dL High 6.02-18.40 [facility] Serum or plasma triiodothyro nine (T3) measurement (mass/volume)on 03-08-2025 T3 [Mass/Vol] 0.60 ng/mL Low 0.80-2.00 [facility] EGD Study observation Narrat luis a 04-14-2024 [facility] Gastrointestinal Endoscopy Patient Name: Brittany Harris Procedure Date: 04/14/2024 1:50 PM Date of : 1955 Admit Type: Outpatient Age: 68 Room: [facility] 02 Gender: Female Attending MD: Emi Power MD, [id number] Procedure: Upper GI endoscopy Indications: Weight loss [...] are complete. Procedure Code(s): --- Professional --- 50650, Esophagogastroduoden oscopy, flexible, transoral; with biopsy, single or multiple CPT copyright 2020 [employer]. All rights reserved. The codes documented in this report are preliminary and upon logistics specialist review may be revised to meet current compliance requirements. Scope In: Scope Out: MD Emi Dunlap MD 04/14/2024 2:08:58 PM This report has been signed electronically by Emi Power MD Number of Addenda: 0 Note Initiated On: 04/14/2024 1:50 PM Estimated Blood Loss: Estimated blood loss: none. PROVATION [facility] Radiology Study observation (narrative) [facility] Flexible sigmoidoscopy study on 04-14-2024 [facility] Gastrointestinal Endoscopy Patient Name: Brittany Harris Procedure Date: 04/14/2024 2:09 PM Date of : 1955 Admit Type: Outpatient Age: 68 Room: [facility] 02 Gender: Female Attending MD: Emi Power MD, [id number] Procedure: Colonoscopy Indications: Abnormal CT of the [...] previous diet. Procedure Code(s): --- Professional --- 81215, Colonoscopy, flexible; diagnostic, including collection of specimen(s) by brushing or washing, when performed (separate procedure) CPT copyright 2020 [employer]. All rights reserved. The codes documented in this report are preliminary and upon logistics specialist review may be revised to meet current compliance requirements. Scope In: Scope Out: MD Emi Dunlap MD 04/14/2024 2:26:09 PM This report has been signed electronically by Emi Power MD Number of Addenda: 0 Note Initiated On: 04/14/2024 2:09 PM Estimated Blood Loss: Estimated blood loss: none. PROVATION [facility] Radiology Study observation (narrative) [facility] Absolute lymphocyte countOrd ered By: Mario Federico on 09-19-2023 Lymphocytes Auto (Unsp spec) [#/Vol] 0.95 10*3/uL 0.83-4.51 [facility] Basophil percentageOrdered B y: Mario Federico on 09-19-2023 Basophil percentage 0-5 SEEN /hpf 0-5 [facility] Basophils/100 WBC (Bld) 0.8 % 0-1 [facility] Bilirubin [Mass/Vol] 0.70 mg/dL 0.20-1.00 [facility] Comment on above: For patients on eltr ombopag therapy, use of Dimension [place] TBIL is not recommended. Chloride [Moles/Vol] 106 mmol/L 98-107 [facility] Eosinophils/100 WBC (Bld) 11.9 % 0-5 [facility] Glucose [Mass/Vol] 80 mg/dL 74-106 [facility] Neutrophils (Bld) [#/Vol] 2.6 10*3/uL 2.0-7.7 [facility] Neutrophils/100 WBC (Bld) 53.7 % 47-70 [facility] Potassium [Moles/Vol] 3.6 mmol/L 3.5-5.1 [facility] Protein [Mass/Vol] 6.3 g/dL 6.4-8.2 [facility] Sodium [Moles/Vol] 140 mmol/L 136-145 [facility] WBC (Bld) [#/Vol] 4.8 10*3/uL 4.4-11.0 [facility] Bilirubin Test strip Ql (U)O rdered By: Mario Caballero on 09-19-2023 Bilirubin Ql (U) Negative Negative [facility] Blood erythrocytes count (nu mber/volume)Ordered By: Mario Caballero on 09-19-2023 RBC (Bld) [#/Vol] 4.43 10*6/uL 4.2-5.4 [facility] Blood hemoglobin measurement (mass/volume)Ordered By: Mario Caballero on 09-19-2023 Hemoglobin (Bld) [Mass/Vol] 13.4 g/dL 12.0-15.0 [facility] Blood lymphocytes/100 leukoc ytesOrdered By: Mario Caballero on 09-19-2023 Lymphocytes/100 WBC (Bld) 19.8 % 19-41 [facility] Blood monocytes/100 leukocyt esOrdered By: Mario Caballero on 09-19-2023 Monocytes/100 WBC (Bld) 13.6 % 0-10 [facility] Blood platelet mean volumeOr dered By: Mario Caballero on 09-19-2023 Platelet mean volume (Bld) [Entitic vol] 10.7 fL 6.2-12.0 [facility] Determination of erythrocyte mean corpuscular volume (MCV)Ordered By: Mario Caballero on 09-19-2023 MCV (RBC) [Entitic vol] 90.7 fL 81-99 [facility] Hematocrit Auto (Bld) [Volum e fraction]Ordered By: Mario Caballero on 09-19-2023 Hematocrit (Bld) [Volume fraction] 40.2 % 37-47 [facility] Ketones Test strip Ql (U)Ord ered By: Mario Caballero on 09-19-2023 Ketones Ql (U) 150 mg/dl Negative [facility] Comment on above: CRITICAL VALUE *HRES ULTS CALLED TO DELFIN 09/19/23 Clifford Rolon.REPORT READ BACK BY DELFIN. Laboratory - Chemistry and C hemistry - challengeOrdered By: Mario Caballero on 09-19-2023 ALP [Catalytic activity/Vol] 51 U/L 45-117 [facility] ALT [Catalytic activity/Vol] 18 U/L 13-56 [facility] CO2 [Moles/Vol] 26.0 mmol/L 21.0-32.0 [facility] Globulin (S) [Mass/Vol] 3.1 g/dL 2.2-4.2 [facility] Lipase [Catalytic activity/Vol] 20 U/L -75 [facility] Comment on above: Please note:LIPASE r evised reference range effective 23. New Lipase methodology. Expected to produce lower values than the previous assay method. NEW Reference Range: 13 - 75 U/L Urea nitrogen/Creatinine [Mass ratio] 18.6 mg/mg 10-20 [facility] - Hematology and Cell countsOrdered By: Mario Caballero on 09-19-2023 Erythrocyte distribution width (RBC) [Entitic vol] 44.3 fL 35.1-43.9 [facility] Erythrocyte distribution width (RBC) [Ratio] 13.3 % 11.6-14.6 [facility] Immature granulocytes/100 WBC (Bld) 0.200 % 0.0-0.9 [facility] Comment on above: IG% - Immature Granu locytes (promyelocytes, myelocytes and metamyelocytes) > 1% indicates that a LEFT SHIFT is Present. MCH (RBC) [Entitic mass] 30.2 pg 27.0-32.0 [facility] Nucleated RBC/100 WBC (Bld) [Ratio] 0 % 0-5 [facility] MCHC Auto (RBC) [Mass/Vol]Or dered By: Mario Caballero on 09-19-2023 MCHC (RBC) [Mass/Vol] 33.3 g/dL 32-36 [facility] Mucus LM Ql (Urine sed)Order ed By: Mario Caballero on 09-19-2023 Mucus Ql (Urine sed) 0 SEEN /hpf [facility] Nitrite Test strip Ql (U)Ord ered By: Mario Caballero on 09-19-2023 Nitrite Ql (U) Negative Negative [facility] No Panel InformationOrdered By: Mario Caballero on 09-19-2023 Estimated Creatinine Clearance Calc 44.12 ml/min [facility] Estimated GFR (MDRD) Amer 74 mL/min >60 [facility] Comment on above: GFR Calc Estimated GFR (MDRD) Non-Af Amer 61 mL/min >60 [facility] Comment on above: Non- GFR Calc Platelets bldOrdered By: Micaela Caballero on 09-19-2023 Platelets (Bld) [#/Vol] 141 10*3/uL 150-450 [facility] Protein Test strip Ql (U)Ord ered By: Mario Caballero on 09-19-2023 Protein Ql (U) 15 mg/dl Negative [facility] Serum or plasma albumin bowen urement (mass/volume)Ordered By: Mario Caballero on 09-19-2023 Albumin [Mass/Vol] 3.2 g/dL 3.2-5.0 [facility] Serum or plasma albumin/glob ulin mass ratioOrdered By: Mario Caballero on 09-19-2023 Albumin/Globulin [Mass ratio] 1.0 {ratio} 0.9-2.4 [facility] Serum or plasma calcium bowen urement (mass/volume)Ordered By: Mario Caballero on 09-19-2023 Calcium [Mass/Vol] 9.6 mg/dL 8.5-10.1 [facility] Serum or plasma creatinine m easurement (mass/volume)Ordered By: Mario Caballero on 09-19-2023 Creatinine [Mass/Vol] 0.97 mg/dL 0.55-1.02 [facility] Comment on above: The validity of the calculated GFR & GFRAA in patients over 70 years has not been determined. Clinical correlation is essential. Serum or plasma urea nitroge n measurement (mass/volume)Ordered By: Mario Caballero on 09-19-2023 Urea nitrogen [Mass/Vol] 18 mg/dL 7-18 [facility] Squamous epithelial cells de tection in urine sediment by light microscopyOrdered By: Mario Caballero on 09-19-2023 Epithelial cells.squamous LM Ql (Urine sed) 0-5 SEEN /hpf 5-10 [facility] Thin prep Papanicolaou smear with manual screeningOrdered By: Mario Caballero on 09-19-2023 Thin prep Papanicolaou smear with manual screening 27 U/L 15-37 [facility] Thin prep Papanicolaou smear with manual screening 8 5-15 [facility] Urine blood detectionOrdered By: Mario Caballero on 09-19-2023 RBC Ql (U) Negative Negative [facility] RBC Ql (U) 0 SEEN /hpf 0-5 [facility] Urine clarityOrdered By: Micaela Caballero on 09-19-2023 Clarity (U) Clear Clear [facility] Urine color determinationOrd ered By: Mario Caballero on 09-19-2023 Color (U) Yellow Yellow [facility] Urine glucose detectionOrder ed By: Mario Caballero on 09-19-2023 Glucose Ql (U) Normal mg/dl Normal [facility] Urine leukocyte esterase det ection by dipstickOrdered By: Mario Caballero on 09-19-2023 Leukocyte esterase Test strip Ql (U) 25 /ul Negative [facility] Urine pHOrdered By: Mario stewart on 09-19-2023 pH (U) 5.0 [pH] 5.0 - 8.0 [facility] Urine sediment bacteria coun t by microscopy (number/high power field)Ordered By: Mario Caballero on 09-19-2023 Bacteria LM.HPF (Urine sed) [#/Area] 0 /[HPF] None Seen [facility] Urine specific gravity measu rementOrdered By: Mario Caballero on 09-19-2023 Specific gravity (U) [Rel density] 1.015 1.002-1.030 [facility] Urobilinogen Auto test strip Ql (U)Ordered By: Mario Caballero on 09-19-2023 Urobilinogen Ql (U) Normal mg/dl Normal [facility] Vital Signs Date Time Vital Sign Value Performing Clinician Faci lity 04-14-2024 14:58-0400 Diastolic blood pressure 70 mm[Hg] Emi Power MD Work Phone: [facility] 04-14-2024 14:58-0400 Heart rate 86 /min Emi Power MD Work Phone: [facility] 04-14-2024 14:58-0400 Respiratory rate 18 /min Emi Power MD Work Phone: [facility] 04-14-2024 14:58-0400 SaO2% (BldA) [Mass fraction] 100 % Emi Power MD Work Phone: [facility] 04-14-2024 14:58-0400 Systolic blood pressure 130 mm[Hg] Emi Power MD Work Phone: [facility] 04-14-2024 14:28-0400 Body temperature 97.3 [degF] Emi Power MD Work Phone: [facility] 04-14-2024 13:35-0400 Body height 162.6 cm Emi Power MD Work Phone: [facility] 04-14-2024 13:35-0400 Body mass index (BMI) [Ratio] 17.06 kg/m2 Emi Power MD Work Phone: [facility] 04-14-2024 13:35-0400 Body weight 45.09 kg Emi Power MD Work Phone: [facility] 04-09-2024 09:32-0400 Body height 162.6 cm Emi Power MD Work Phone: [facility] 04-09-2024 09:32-0400 Body mass index (BMI) [Ratio] 17.34 kg/m2 Emi Power MD Work Phone: [facility] 04-09-2024 09:32-0400 Body weight 45.81 kg Emi Power MD Work Phone: [facility] 04-09-2024 09:32-0400 Diastolic blood pressure 64 mm[Hg] Emi Power MD Work Phone: [facility] 04-09-2024 09:32-0400 Heart rate 88 /min Emi Power MD Work Phone: [facility] 04-09-2024 09:32-0400 Respiratory rate 16 /min Emi Power MD Work Phone: [facility] 04-09-2024 09:32-0400 Systolic blood pressure 88 mm[Hg] Emi Power MD Work Phone: [facility] 09-19-2023 15:32-0500 Diastolic blood pressure 88 mm[Hg] [facility] 09-19-2023 15:32-0500 Heart rate 62 /min [facility] 09-19-2023 15:32-0500 Respiratory rate 15 /min [facility] 09-19-2023 15:32-0500 SaO2% (BldA) [Mass fraction] 97 % [facility] 09-19-2023 15:32-0500 Systolic blood pressure 129 mm[Hg] [facility] 09-19-2023 12:33-0500 Body height 162.56 cm [facility] 09-19-2023 12:33-0500 Body mass index (BMI) [Ratio] 19 kg/m2 [facility] 09-19-2023 12:33-0500 Body temperature 99 [degF] [facility] 09-19-2023 12:33-0500 Body weight 50.34 kg [facility] Encounters Encounter Date Encounter Type Care Provider Facility Start: 03-08-2025 End: 03-08-2025 ambulatory ZONIA HARRIS Work Phone: [facility] Work Phone: Start: 03-08-2025 End: 03-08-2025 Patient encounter procedure ZONIA HARRIS Work Phone: -Laboratory Work Phone: Start: 03-08-2025 End: 03-08-2025 ambulatory OOTDR PULL Facility:[facility] Start: 06-03-2024 End: 06-04-2024 ambulatory Emi Power MD Work Phone: Gastroenterology Comment on above: Sharing PET scan res ults Start: 04-19-2024 ambulatory Emi Power MD Work Phone: Gastroenterology Comment on above: results Start: 04-19-2024 E-mail encounter fro m caregiver Emi Power MD Work Phone: Gastroenterology Start: 04-14-2024 End: 04-14-2024 Subsequent hospital visit by physician Emi Power MD Work Phone: [facility] [place] Comment on above: Malignant neoplasm o f [...] 09-19-2023 End: 09-19-2023 Emergency department patient visit [facility] Work Phone: Procedures Date Procedure Procedure Detail Performing Clinician Start: 03-08-2025 Adrenocorticotropic hormone measurement ZONIA HARRIS Work Phone: Comment on above: ACTH reference interval for samples juan a ected between 7 and10 AM.Performed at: - [facility] [id number] Director: Alcides Borrero PhD, Phone: [phone] Start: 03-08-2025 Procedure ZONIA HARRIS Work Phone: Comment on above: Test Ordered: [id number] Thyroid Panel With TSHTSH 0.291 [L ] uIU/mL CB Reference Range: 0.450-4.500Thyroxine (T4) 6.2 ug/dL CB Reference Range: 4.5-12.0T3 Uptake 24 % CB Reference Range: 24-39Free Thyroxine Index 1.5 CB Reference Range: 1.2-4.9Performed at: - [facility] [address] [id number] Director: Alcides Borrero PhD, Phone: [phone] Start: 04-14-2024 Colonoscopy flx dx w/collj spec when pfrmd Emi Power MD Work Phone: Start: 04-14-2024 Esophagogastroduodenoscopy transoral diagnostic Emi Power MD Work Phone: Start: 04-14-2024 Colonoscopy Emi Power MD Work Phone: Start: 09-19-2023 Computed tomography of abdomen and pelvis with intravenous contrast Plan of Treatment Date Care Activity Detail Author Start: 03-21-2027 Diabetes Screening Diabetes Screening [facility] Start: 04-14-2025 Screening for malignant neoplasm of colon [facility] Start: 07-20-2024 End: 07-20-2024 Patient encounter procedure 07/20/2024 9:00 AM EDT Office Visit Gastroenterology [address] [place] [address] [place] [address] [place] [address] [place] [address] [place] [address] Follow up Gastroenterology Comment on above: Follow up Start: 06-06-2024 Influenza [facility] Start: 04-14-2024 End: 04-14-2024 Patient encounter procedure 04/14/2024 2:30 PM EDT Appointment [facility] [place] [address] [place] [address] [place] [address] [place] [address] [place] [address] [place] [address] Mariann Grider RN Watson, Shanaka, Tech Malignant neoplasm of ill-defined sites within digestive system (HCC) [C26.9] [facility] Comment on above: Malignant neoplasm of ill-defined sites within digestive system (HCC) [C26.9] Start: 04-12-2024 End: 04-12-2024 Patient encounter procedure 04/12/2024 2:[address] Scan [address] [place] [address] Malignant neoplasm of ill-defined sites within digestive system (HCC) [C26.9] CT [facility] Comment on above: Malignant neoplasm of ill-defined sites within digestive system (HCC) [C26.9] Start: 10-06-2023 Advance Directive Discussion Advance Directive Discussion [facility] Start: 10-06-2023 Behavioral Health Screening Behavioral Health Screening [facility] Start: 09-19-2023 Chemotherapy care management [facility] Start: 06-06-2023 Covid-19 Vaccine ( season) Covid-19 Vaccine ( season) [facility] Start: 2020 Pneumococcal Vaccine: 65+ (1 of 1 - PCV) Pneumococcal Vaccine: 65+ (1 of 1 - PCV) [facility] Start: 2020 Screening for osteoporosis Bone Density Screening [facility] Start: 2015 RSV Vaccine (1 - 1-dose 60+ series) RSV Vaccine (1 - 1-dose 60+ series) [facility] Start: 2005 Shingrix Vaccine (1 of 2) Shingrix Vaccine (1 of 2) [facility] Start: 2000 Lipid panel Lipid Screening [facility] Start: 2000 Screening for malignant neoplasm of colon [facility] Start: 1995 Screening for malignant neoplasm of breast Mammogram Screening [facility] Start: 1974 Urine microalbumin profile DTaP,Tdap,Td Vaccine (1 - Tdap) [facility] Start: 1973 Anxiety Screening Anxiety Screening [facility] Start: 1973 Depression Screening Depression Screening [facility] Start: 1973 Hepatitis C screening Hepatitis C Screening [facility] End: 05-09-2025 CT Small bowel W contrast PO and W contrast IV CT ENTEROGRAPHY W IVCON Radiology Routine Malignant neoplasm of ill-defined sites within digestive system (HCC) Abnormal CT scan, gastrointestinal tract Weight loss 1 Occurrences starting 04/09/2024 until 05/09/2025 [facility] Work Phone: Comment on above: 1 Occurrences starting 04/09/2024 until 05/09/2025 CT Small bowel W contrast PO and W contrast IV CT ENTEROGRAPHY W IVCON Radiology Routine Malignant neoplasm of ill-defined sites within digestive system (HCC) Abnormal CT scan, gastrointestinal tract Weight loss 04/12/2024 2:50 PM EDT [facility] Work Phone: End: 04-09-2025 EGD DIAGNOSTIC EGD DIAGNOSTIC Endoscopy Routine Malignant neoplasm of ill-defined sites within digestive system (HCC) Abnormal CT scan, gastrointestinal tract Weight loss 1 Occurrences starting 04/09/2024 until 04/09/2025 [facility] Comment on above: 1 Occurrences starting 04/09/2024 until 04/09/2025 End: 04-09-2025 Flexible sigmoidoscopy study COLONOSCOPY DIAGNOSTIC Endoscopy Routine Abnormal CT scan, gastrointestinal tract Weight loss 1 Occurrences starting 04/09/2024 until 04/09/2025 [facility] Comment on above: 1 Occurrences starting 04/09/2024 until 04/09/2025 Patient Education Cancer Tx Cont rol Nausea Vomiting Dehydration [facility] Work Phone: Patient referral [facility] Work Phone: SURGICAL PATHOLOGY [facility] Work Phone: Comment on above: Release Upon Ordering for 1 Occurrences starting 04/14/2024 Immunizations Immunization Date Immunization Notes Care Provider Fa cility 12-07-2015 influenza virus vacc ine, unspecified formulation Emi Power MD Work Phone: [facility] Payers Date Payer Category Payer Medicare [id number] 2025 Self-pay 2025 Unknown [id number] 2023 Private Health Insurance [facility] AARP SUPPLEMENT [id number] 2023-Present [phone] [address] [place] [address] Indemnity [id number] 2020 Medicare MEDICARE MEDICAR E A AND B [id number] 2020-Present [phone] [place] [address] Medicare [id number] Unknown [id number] Social History Date Type Detail Facility Start: 09-19-2023 End: 04-09-2024 Tobacco smoking status NHIS Never smoked tobacco [facility] Start: 04-09-2024 Tobacco use and exposure Smokeless tobacco non-user [facility] Start: 04-09-2024 End: 04-14-2024 Alcohol intake Ex-drinker (finding) [facility] Start: 03-22-2024 End: 04-09-2024 History of Social function [facility] Start: 03-22-2024 End: 04-09-2024 Tobacco use panel [facility] National Score (1-100), lower number is lower risk 67 [facility] Start: 1955 Sex Assigned At Not on file [facility] Start: 09-19-2023 Tobacco smoking stat us MIIS Unknown if ever smoked [facility] Start: 1955 Sex Assigned At Female W [facility] Clinical Notes 04-09-2024 to 06-03-2024 Telephone Encounter - Silvana Mena LPN - 06/03/2024 1:43 PM EDTTelephone Encounter - Silvana Mena LPN - 06/03/2024 1:43 PM DIANATChichi Phillips RN - 04/14/2024 3:10 PM EDT Note Date & Type Note Facility 06-03-2024 Telephone encounter Note Message routed to . Silvana Mena LPN [facility] 06-03-2024 Miscellaneous Notes Message routed to . Silvana Mena LPN documented in this encounter [facility] 04-14-2024 Nurse Note Phase 2 criteria met. [...] Signed By: Chichi Phillips RN In Department: [facility] 04-14-2024 Nurse Note Phase 2 criteria met. [...] Signed By: Chichi Phillips RN In Department: [facility] Cecum reached at 1414. PRE OP LEARNING ASSESSMENT PROCEDURE/SURGERY: GI PROCEDURES: Colonoscopy and EGD READINESS TO LEARN COGNITIVE ABILITY: Alert and oriented MOTIVATION TO LEARN: Eager Interested FAMILY SUPPORT: High - Very involved in pt care PATIENT LEARNS BEST BY: Individual Instruction Verbal Instruction FACTORS AFFECTING LEARNING: None PHYSICAL LIMITATIONS AFFECTING LEARNING: None Electronically Signed By: Tammy Saldaña RN In Department: [facility] SURGERY RUGBY documented in this encounter [facility] 04-14-2024 Anesthesiology Postoperative evaluation and management note POST ANESTHESIA DISCHARGE NOTE SERVICE DATE: 04/14/2024 SERVICE TIME: 1432 : 1955 Vitals: BP 137/55 Pulse 67 [...] DATE: April 14, 2024 TIME: 2:32 PM [facility] Work Phone: 04-14-2024 History and physical note [...] medications for this encounter. REVIEW OF SYSTEMS: PRUNER: Negative for stroke Respiratory: Negative for dyspnea, [...] Power MD April 14, 2024 1:48 PM [facility] Work Phone: 04-14-2024 History and physical note [...] medications for this encounter. REVIEW OF SYSTEMS: PRUNER: Negative for stroke Respiratory: Negative for dyspnea, [...] Power MD April 14, 2024 1:48 PM documented in this encounter [facility] 04-14-2024 Nurse Note Cecum reached at 1414. [facility] 04-14-2024 Procedure note POST ANESTHESIA DISCHARGE NOTE [...] TIME: 2:32 PM documented in this encounter [facility] 04-14-2024 Nurse Note PRE OP LEARNING ASSESSMENT PROCEDURE/SURGERY: GI PROCEDURES: Colonoscopy and EGD READINESS TO LEARN COGNITIVE ABILITY: Alert and oriented MOTIVATION TO LEARN: Eager Interested FAMILY SUPPORT: High - Very involved in pt care PATIENT LEARNS BEST BY: Individual Instruction Verbal Instruction FACTORS AFFECTING LEARNING: None PHYSICAL LIMITATIONS AFFECTING LEARNING: None Electronically Signed By: Tammy Saldaña RN In Department: [facility] 04-12-2024 Miscellaneous Notes Radiology Service Progress Note [...] PATIENT PRESENTS WITH AN IMPLANTABLE OR ATTACHED GUEST HOUSE MANAGER: No ALLERGIES: Reviewed and unchanged CONTRAST ALLERGY: [...] TIME: 2:37 PM documented in this encounter [facility] 04-12-2024 Progress note Formatting of t his [...] PATIENT PRESENTS WITH AN IMPLANTABLE OR ATTACHED GUEST HOUSE MANAGER: No ALLERGIES: Reviewed and unchanged CONTRAST ALLERGY: [...] DEPARTMENT: CT; Exam(s) Completed: Enterography SIGNATURE: RT Sher(Josselyn) PATIENT NAME: Brittany Harris DATE: April 12, 2024 TIME: 2:37 PM [facility] 04-09-2024 History of Present illness Narrative REFERRING [...] palmar erythema Results CT ABD/PEL W IVCON (Acc#[id number]) (Order [id number]) Patient Info Patient Name Sex Brittany Norris ([id number]) Female 1955 03/21/2024 6:14 PM - Radiology, [...] Emi Power MD documented in this encounter [facility] Evaluation note Diagnosis Malignant neoplasm of ill-defined sites within digestive system (HCC)- Primary Malignant neoplasm of ill-defined sites of digestive organs and peritoneum Abnormal CT scan, gastrointestinal tract Nonspecific (abnormal) findings on radiological and other examination of gastrointestinal tract Weight loss Loss of weight documented in this encounter [facility] note* Diagnosis Malignant neoplasm of ill-defined sites within digestive system (HCC) Malignant neoplasm of ill-defined sites of digestive organs and peritoneum Abnormal CT scan, gastrointestinal tract Nonspecific (abnormal) findings on radiological and other examination of gastrointestinal tract Weight loss Loss of weight documented in this encounter [facility] note* Diagnosis Malignant neoplasm of ill-defined sites within digestive system (HCC) Malignant neoplasm of ill-defined sites of digestive organs and peritoneum Abnormal CT scan, gastrointestinal tract Nonspecific (abnormal) findings on radiological and other examination of gastrointestinal tract Weight loss Loss of weight documented in this encounter [facility] noteNo assessment information availableWCleveland [facility] Work Phone: Hospital Discharge instructions Additional Instructions Please follow-up with your [facility]WC[facility] Work Phone: Reason for referral (narrative)* Outpatient Procedure (Routine) - Authorized Specialty Diagnoses / Procedures Referred By Sloan guerrero Referred To Contact [facility] Diagnoses Abnormal CT scan, gastrointestinal tract Weight loss Procedures COLONOSCOPY DIAGNOSTIC COLONOSCOPY FLX DX W/COLLJ [place] [address] [place] [address] [place] [address] [facility] [address] [place] [address] Referral ID Status Reason Start Date Expiration Date Visits Requested Visits Authorized [id number] Authorized Auto-Generat ed Referral 04/09/2024 04/09/2025 1 1 * Outpatient Procedure (Routine) - Authorized Specialty Diagnoses / Procedures Referred By Contvarghese guerrero Referred To Contact [facility] Diagnoses Malignant neoplasm of ill-defined sites within digestive system (HCC) Abnormal CT scan, gastrointestinal tract Weight loss Procedures EGD DIAGNOSTIC ESOPHAGOGASTRODUODENOSCOPY [place] [address] [place] [address] [place] [address] [facility] [address] [place] [address] Referral ID Status Reason Start Date Expiration Date Visits Requested Visits Authorized [id number] Authorized Auto-Generat ed Referral 04/09/2024 04/09/2025 1 1 * MRI/CT (Routine) - Authorized Specialty Diagnoses / Procedures Referred By Shannonac t Referred To Contact [facility] Diagnoses Malignant neoplasm of ill-defined sites within digestive system (HCC) Abnormal CT scan, gastrointestinal tract Weight loss Procedures CT ENTEROGRAPHY W IVCON CT ABD & PEL[place] [address] [place] [address] [place] [address] [place] [address] Referral ID Status Reason Start Date Expiration Date Visits Requested Visits Authorized [id number] Authorized Auto-Generat ed Referral 04/09/2024 05/09/2025 1 1 [facility] for referral (narrative)* Outpatient Procedure (Routine) - Closed Specialty Diagnoses / Procedures [facility] Referred To Contact [facility] Diagnoses Abnormal CT scan, gastrointestinal tract Weight loss Procedures COLONOSCOPY DIAGNOSTIC COLONOSCOPY FLX DX W/COLLJ SPEC WHEN PFRMD Emi Power MD [address] [place] [address] [place] [address] [facility] [address] [place] [address] Referral ID Status Reason Start Date Expiration Date V isits Requested Visits Authorized [id number] Closed Auto-Generate d Referral 04/09/2024 04/09/2025 1 1 * Outpatient Procedure (Routine) - Closed Specialty Diagnoses / Procedures Referred [facility] Referred To Contact [facility] Diagnoses Malignant neoplasm of ill-defined sites within digestive system (HCC) Abnormal CT scan, gastrointestinal tract Weight loss Procedures EGD DIAGNOSTIC ESOPHAGOGASTRODUODENOSCOPY [place] [address] [place] [address] [place] [address] [facility] [place] [address] [place] [address] Referral ID Status Reason Start Date Expiration Date V isits Requested Visits Authorized [id number] Closed Auto-Generate d Referral 04/09/2024 04/09/2025 1 1 [facility] (narrative)No reason for referral information availableWCleveland Clinic [facility] Work Phone: Reason for visit Narrative* Outpatient Procedure (Routine) - Closed Specialty Diagnoses / Procedures Referred By Contac t Referred To Contact [facility] Diagnoses Abnormal CT scan, gastrointestinal tract Weight loss Procedures COLONOSCOPY DIAGNOSTIC COLONOSCOPY FLX DX W/COLLJ [place] [address] [place] [address] [place] [address] [facility] [address] [place] [address] Referral ID Status Reason Start Date Expiration Date V isits Requested Visits Authorized [id number] Closed Auto-Generate d Referral 04/09/2024 04/09/2025 1 1 [facility] Chief Complaint and Reason for Visit Chief Complaint abd Family History No Family History Records Found Relationship Condition Age at Onset Recorded Date/T luna Not Specified History of hysterectomy for malignancy U nknown History of hysterectomy Unknown History of tonsillectomy Unknown Complication of implanted vaginal mesh Un known Advance Directives No Advanced Directives Records Found Advance Directive Response Recorded Date/ Time Living Will Yes September 19, 023 1:10pm Power of Tax Accounting Manager Yes September 19, 2023 1:10pm Name of Medical Power of Tax Accounting Manager SON September 19, 2023 1:10pm Summary Purpose Additional Source Comments Source Comments (unrecognize d section and content) In the event this informatio n is protected by the Federal Confidentiality of Alcohol and Drug Abuse Patient Records regulations: The Federal rules restrict any use of the information to criminally investigate or prosecute any alcohol or drug abuse patient.[facility] the event this information is protected by the Federal Confidentiality of Alcohol and Drug Abuse Patient Records regulations: The Federal rules restrict any use of the information to criminally investigate or prosecute any alcohol or drug abuse patient.[facility] Center[facility] the event this information is protected by the Federal Confidentiality of Alcohol and Drug Abuse Patient Records regulations: The Federal rules restrict any use of the information to criminally investigate or prosecute any alcohol or drug abuse patient.[facility] Center[facility] the event this information is protected by the Federal Confidentiality of Alcohol and Drug Abuse Patient Records regulations: The Federal rules restrict any use of the information to criminally investigate or prosecute any alcohol or drug abuse patient.[facility] Center[facility] the event this information is protected by the Federal Confidentiality of Alcohol and Drug Abuse Patient Records regulations: The Federal rules restrict any use of the information to criminally investigate or prosecute any alcohol or drug abuse patient.[facility] Reason for Visit (unrecogniz ed section and content) Reason Comments Consult Follow up from ER vi sit Abdominal Pain Specialty Diagnoses / Procedures Referred By Contac t Referred To Contact CT [facility] Diagnoses Malignant neoplasm of ill-defined sites within digestive system (HCC) Abnormal CT scan, gastrointestinal tract Weight loss Procedures CT ENTEROGRAPHY W IVCON CT ABD & PELVIS W/CONTRAST Emi Power MD [address] [place] [address] [place] [address] Referral ID Status Reason Start Date Expiration Date V isits Requested Visits Authorized [id number] Closed Auto-Generate d Referral 04/09/2024 05/09/2025 1 1 Care Teams (unrecognized sec tion and content) Contact Lens Polisher Relationship Specialty Start Date End Date Zonia Harris [place] [address] PCP - General Nurse Practitioner 03/21/24 Contact Lens Polisher Relationship Specialty Start Date End Date Zonia [place] [address] PCP - General Nurse Practitioner 03/21/24 Contact Lens Polisher Relationship Specialty Start Date End Date Zonia [place] [address] PCP - General Nurse Practitioner 03/21/24 Team Status: Active Member Role Status Dates No Primary Care Physician Primary Care Provider Active Team Status: Inactive Member Role Status Dates Godfrey Saeed MD Emergency Provider Active No Primary Care Physician Primary Care Provider Active Contact Lens Polisher Relationship Specialty Start Date End Date [place] [place] [address] PCP - General Nurse Practitioner 03/21/24 Team Status: Active Member Role Status Dates ZONIA HARRIS Primary Care Provider Active Team Status: Inactive Member Role Status Dates KIMBERLY BRAR Primary Care Provider Active Start: March 08, 2025 End: March 08, 2025 NGOZI ZAVALA Attending Provider Active Start: March 08, 2025 End: March 08, 2025 NGOZI ZAVALA Referring Provider Active Start: March 08, 2025 End: March 08, 2025 Goals (unrecognized section and content) Goals may be documented in a n alternate sectionGoals may be documented in an alternate section INFORMATION SOURCE (unrecogn ized section and content) DATE CREATED AUTHOR 03/15/2025 [facility] FOR RECORDS PERTAINING TO PATIENTS WHO ARE [...] BE BASED ON THE PRIMARY CLINICAL RECORDS. [facility] [employer] provides no warranty or guarantee of the accuracy or completeness of information in this document.
[2025-03-16 10:45] LABS: Free T3 1.7 pg/mL (2.18-3.98); T3 Total - Triiodothyronine 0.45 ng/mL (0.80-2.00)
[2025-03-17 13:08] LABS: Adrenocorticotropic Hormone < 1.5 pg/mL (7.2-63.3)
== END | disposition home or self-care (01) ==
DX: C54.8 Malignant neoplasm of overlapping sites of corpus uteri (principal)
CPT/HCPCS: 36415; 82024; 82533; 84480; 84481